=== PATIENT | female | born 1965 | race African-American/Black ===

== ENCOUNTER 2017-01-24 20:45 | Emergency (ER) | payer MEDICARE, OTHER ==
[~2017-01-24] VITALS: Ht 160 cm; Wt 58.5 kg
[2017-01-24 21:18] LABS: BASO # 0.1 x10^3/uL (0.0-0.2); BASO % 1 % (0-3); EOS % 2 % (0-3); HEMOGLOBIN 13.3 g/dL (12.0-15.5); LYMPH # 3.2 x10^3/uL (1.0-4.8); LYMPH % 33 % (24-48); MEAN CORPUSCULAR HEMOGLOBIN 31 pg (25-35); MEAN CORPUSCULAR HGB CONC 33 g/dL (31-37); MEAN CORPUSCULAR VOLUME 94 fL (79-100); MONO % 11 % (0-9); NEUT % 53 % (31-73); PLATELET COUNT 301 x10^3/uL (140-400); RED BLOOD COUNT 4.27 x10^6/uL (3.50-5.40); WHITE BLOOD COUNT 9.5 x10^3/uL (4.0-11.0)
[2017-01-24] MEDS ORDERED: IV NORMAL SALINE 1000ML BAG 1,000 ML IV SCH (21:19)
[2017-01-24 21:22] LABS: BILIRUBIN,URINE NEGATIVE (NEG); GLUCOSE,URINE 100 mg/dL (NEG); NITRITE,URINE NEGATIVE (NEG); PROTEIN,URINE NEGATIVE (NEG-TRACE); UROBILINOGEN,URINE 0.2 mg/dL (0.2 mg/dL)
--- NOTE | 2017-01-24 21:26 | ED.ADGEN ---
Past Medical History Past Medical History: Anxiety, Depression, Diabetes-Type II, High Cholesterol, Hypertension, Schizophrenia Additional Past Medical Histor: hypercholesterol Past Surgical History: Hysterectomy, Tubal ligation Additional Past Surgical Histo: ear Alcohol Use: None Drug Use: None Adult General Chief Complaint Chief Complaint: GI PROBLEM HPI HPI Patient is a 51 year old woman, history of type 2 diabetes mellitus, hypertension, hyperlipidemia, anxiety, who presents to the emergency department with a complaint of left upper quadrant pain. Patient states that she has noted a "knot", on her left side with intermittent pain, which isn't present for about the last year or so. She had an ultrasound performed at last week, she states she was called with results of the ultrasound of the left upper quadrant , but does not recall what they told her. She states that she was seated at [employer] around 4 PM which began experiencing increasing pain she describes as a throbbing ache and a stabbing sensation in the left side, she states she's also been experiencing increasing abdominal distention over the last several days. Nausea today as well, which is new for the patient. No vomiting, no diarrhea, no blood in stool or urine, states that it is common for her to go several days without bowel loops, and her last almost 2 days ago. No fevers or chills, no weakness emesis or tingling, no injuries, no bleeding or bruising. No changes in medication, she does not take any blood thinners. No recent travel or surgery , history of DVT or PE, no shortness of breath or chest pain. Review of Systems Review of Systems Constitutional: Denies fever or chills. [] Eyes: Denies change in visual acuity. [] HENT: Denies nasal congestion or sore throat. [] Respiratory: Denies cough or shortness of breath. [] Cardiovascular: Denies chest pain or edema. [] GI: Left upper quadrant abdominal pain, abdominal distention, nausea, no vomiting, bloody stools or diarrhea. : Denies dysuria. [] Musculoskeletal: Denies back pain or joint pain. [] Integument: Denies rash. [] Neurologic: Denies headache, focal weakness or sensory changes. [] Endocrine: Denies polyuria or polydipsia. [] Lymphatic: Denies swollen glands. [] Psychiatric: Denies depression or anxiety. [] Current Medications Current Medications Current Medications Medications (Trade) Dose Ordered Sig/Betsy Start Time Stop Time Status Last Admin Dose Admin Fentanyl Citrate 25 mcg 25 mcg PRN Q15MIN PRN 01/24/17 21:30 01/24/17 23:36 DC 01/24/17 21:29 25 MCG Info (Do NOT chart on this entry -- for MONITORING) 1 each PRN DAILY PRN 01/24/17 22:00 01/24/17 23:36 DC Iohexol (Omnipaque 300 Mg/ml) 75 ml 1X ONCE 01/24/17 21:45 01/24/17 21:47 DC 01/24/17 21:54 75 ML Ondansetron HCl (Zofran) 4 mg 1X ONCE 01/24/17 21:30 01/24/17 21:31 DC 01/24/17 21:28 4 MG Sodium Chloride (Iv Sodium Chloride 0.9% 1000ml Bag) 1,000 ml @ 100 mls/hr Q10H 01/24/17 21:19 01/24/17 23:36 DC 01/24/17 21:26 100 MLS/HR Allergies Allergies Allergies Coded Allergies Type Severity Reaction Last Updated Verified No Known Drug Allergies 03/05/14 No Physical Exam Physical Exam Constitutional: Well developed, well nourished, no acute distress, non-toxic appearance. [] HENT: Normocephalic, atraumatic, bilateral external ears normal, oropharynx moist, no oral exudates, nose normal. [] Eyes: PERRLA, EOMI, conjunctiva normal, no discharge. [] Neck: Normal range of motion, no tenderness, supple, no stridor. [] Cardiovascular:Heart rate regular rhythm, no murmur, S1, S2, no rubs or gallops. [] Lungs & Thorax: Bilateral breath sounds clear to auscultation, no wheezing, rhonchi, rales. No chest wall crepitus or tenderness. [] Abdomen: Bowel sounds diminished but present, soft, patient's abdomen appears mildly distended, patient with a small palpable mass located in the left upper quadrant, no splenic edge palpated, no external signs of injury, patient with tenderness to palpation in this region, no rigidity, no rebound, no guarding, no masses, no pulsatile masses. [] Skin: Warm, dry, no erythema, no rash. [] Back: No tenderness, no CVA tenderness. [] Extremities: No tenderness, no cyanosis, no clubbing, ROM intact, no edema. Negative Homans sign. [] Neurologic: Alert and oriented X 3, normal motor function, normal sensory function, no focal deficits noted. [] Psychologic: Affect normal, judgement normal, mood normal. [] Current Patient Data Vital Signs Vital Signs Date Time Temp Pulse Resp B/P Pulse Ox O2 Delivery O2 Flow Rate FiO2 01/24/17 23:05 72 16 129/71 99 Room Air 01/24/17 21:01 98.6 98.6 Lab Values Laboratory Tests Test 01/24/17 20:58 White Blood Count 9.5x10^3/uL (4.0-11.0) Red Blood Count 4.27x10^6/uL (3.50-5.40) Hemoglobin 13.3g/dL (12.0-15.5) Hematocrit 40.0% (36.0-47.0) Mean Corpuscular Volume 94fL (79-100) Mean Corpuscular Hemoglobin 31pg (25-35) Mean Corpuscular Hemoglobin Concent 33g/dL (31-37) Red Cell Distribution Width 13.0% (11.5-14.5) Platelet Count 301x10^3/uL (140-400) Neutrophils (%) (Auto) 53% (31-73) Lymphocytes (%) (Auto) 33% (24-48) Monocytes (%) (Auto) 11% (0-9) H Eosinophils (%) (Auto) 2% (0-3) Basophils (%) (Auto) 1% (0-3) Neutrophils # (Auto) 5.0x10^3uL (1.8-7.7) Lymphocytes # (Auto) 3.2x10^3/uL (1.0-4.8) Monocytes # (Auto) 1.0x10^3/uL (0.0-1.1) Eosinophils # (Auto) 0.2x10^3/uL (0.0-0.7) Basophils # (Auto) 0.1x10^3/uL (0.0-0.2) Prothrombin Time 12.8SEC (11.7-14.0) Prothrombin Time INR 1.0 (0.8-1.1) PTT 32SEC (24-38) Urine Collection Type Unknown Urine Color Yellow Urine Clarity Clear Urine pH 7.0 Urine Specific Calder <=1.005 Urine Protein Negativemg/dL (NEG-TRACE) Urine Glucose (UA) 100mg/dL (NEG) Urine Ketones (Stick) Negativemg/dL (NEG) Urine Blood Negative (NEG) Urine Nitrite Negative (NEG) Urine Bilirubin Negative (NEG) Urine Urobilinogen Dipstick 0.2mg/dL (0.2 mg/dL) Urine Leukocyte Esterase Negative (NEG) Urine RBC Occ/HPF (0-2) Urine WBC Rare/HPF (0-4) Urine Bacteria 0/HPF (0-FEW) Sodium Level 144mmol/L (136-145) Potassium Level 4.6mmol/L (3.5-5.1) Chloride Level 104mmol/L (98-107) Carbon Dioxide Level 31mmol/L (21-32) Anion Gap 9 (6-14) Blood Urea Nitrogen 11mg/dL (7-20) Creatinine 0.6mg/dL (0.6-1.0) Estimated GFR (Cockcroft-Gault) 126.5 BUN/Creatinine Ratio 18 (6-20) Glucose Level 211mg/dL (70-99) H Calcium Level 9.4mg/dL (8.5-10.1) Total Bilirubin 0.3mg/dL (0.2-1.0) Aspartate Amino Transferase (AST) 16U/L (15-37) Alanine Aminotransferase (ALT) 17U/L (14-59) Alkaline Phosphatase 61U/L (46-116) Total Protein 7.1g/dL (6.4-8.2) Albumin 3.6g/dL (3.4-5.0) Albumin/Globulin Ratio 1.0 (1.0-1.7) Lipase 131U/L (73-393) Laboratory Tests 01/24/17 20:58 Laboratory Tests 01/24/17 20:58 EKG EKG EC: Sinus rhythm, heart rate 81 beats minute, upright axis, QTC of 409, OK 162, QRS of 82, mild baseline artifact, no ST elevations or depressions, no evidence of acute ST abnormalities. As interpreted by me. [] Radiology/Procedures Radiology/Procedures [] [facility] [address] [place] [address] IMAGING REPORT Signed PATIENT: DANIELLA BURROWS ACCOUNT: [id number] : 1965 LOCATION: ER AGE: 51 SEX: F EXAM STATUS: REG ER ORD. PHYSICIAN: ÓSCAR ROY DO REASON: LUQ abd pain/mass/abd distention PROCEDURE: ABD PELV W/ IV CONTRAST ONLY INDICATION: 51-year-old female with severe left-sided abdominal pain today. Left upper quadrant abdominal pain, mass, distension. COMPARISON: None TECHNIQUE: Axial CT images obtained through the abdomen and pelvis following the intravenous administration of 75 cc of Omni 300. Coronal and sagittal reformats are provided. One or more of the following individualized dose reduction techniques were utilized for this examination: 1. Automated exposure control; 2. Adjustment of the mA and/or kV according to patient size; 3. Use of iterative reconstruction technique. FINDINGS: Visualized lung bases appear clear. The liver, spleen, gallbladder, pancreas, adrenal glands and bilateral kidneys demonstrate no focal abnormality. The GI tract demonstrates no dilated bowel loops to suggest obstruction. There is formed fecal material present throughout the length of the colon suggesting constipation. The appendix is normal in caliber and air-filled in the right lower quadrant. The urinary bladder is mostly decompressed and not well evaluated. No intra-abdominal or pelvic free fluid, free air or significant lymphadenopathy is seen. The aorta is normal in caliber, with diffuse atherosclerotic calcification. Visualized osseous structures and overlying soft tissues demonstrate no acute or suspicious finding. IMPRESSION: No acute intra-abdominal or pelvic process. Findings of constipation. Electronically signed by: Nikunj Pierce (Jan 24, 2017 22:15:24) DICTATED and SIGNED BY: NIKUNJ PIERCE MD DATE: 01/24/17 [id number] CC: ÓSCAR ROY DO; MARIA ALEJANDRA CHRISTIE MD ~ Course & Med Decision Making Course & Med Decision Making Pertinent Labs and Imaging studies reviewed. (See chart for details) Patient with small palpable mass noted in the left upper quadrant, firmness, with no evidence of external signs of trauma, history reports an enlarging mass and abdominal pain worsening over the past year, with significant changes over the past several days. Concern for possible splenic pathology, discussed with patient, patient is agreeable to receiving CT of the abdomen and pelvis to further elucidate her symptoms. Also receiving IV fluids, pain medication, and antiemetics. CT abdomen and pelvis reveals no concerning findings, aside from significant constipation, no evidence of impaction or stool bolus, and I believe this is likely the concerning factor to the patient's symptoms and examination. Patient with a mild hyperglycemia, otherwise laboratory studies are unremarkable. I did discuss the signs and patient, she is resting comfortably at this time, without any pain currently, no nausea, and no vomiting has developed. I did discuss the findings with the patient, we discussed dietary changes, use of Colace, and Bentyl as needed, patient to follow-up with Dr. Rose of GI, and with her primary care provider. We discussed concerning symptoms that should prompt return to the ED, with which patient voiced understanding and agreement, states she is ready to go home at this time. Patient discharged home in stable condition with family plan as above. Dragon Disclaimer Dragon Disclaimer This electronic medical record was generated, in whole or in part, using a voice recognition dictation system. Departure Impression: Primary Impression: Abdominal pain Additional Impression: Constipation Disposition: 01 HOME, SELF-CARE Condition: IMPROVED Scripts Docusate Sodium (Colace)100 Mg Capsule1 Cap PO BID PRN CONSTIPATION #60 CAP Prov:ÓSCAR ROY DO 01/24/17 Dicyclomine Hcl (Bentyl)10 Mg Ceyrnsd80 Mg PO QID PRN cramping #14 TAB Prov:ÓSCAR ROY DO 01/24/17 Problem Qualifiers ÓSCAR ROY DO Jan 24, 2017 21:26
[2017-01-24 21:29] LABS: PROTHROMBIN TIME PATIENT 12.8 SEC (11.7-14.0)
[2017-01-24 21:30] LABS: BACTERIA,URINE 0 /HPF (0-FEW); RBC,URINE OCC /HPF (0-2); WBC,URINE RARE /HPF (0-4)
[2017-01-24] MEDS ORDERED: FENTANYL PF 100 MCG/2 ML VIAL. IV PRN (21:30)
[2017-01-24] MEDS ORDERED: ONDANSETRON PF 4 MG/2 ML VIAL. IV ONE (21:30)
[2017-01-24 21:34] LABS: CALCIUM 9.4 mg/dL (8.5-10.1); CREATININE 0.6 mg/dL (0.6-1.0); GFR 126.5
[2017-01-24 21:35] LABS: POTASSIUM 4.6 mmol/L (3.5-5.1)
[2017-01-24 21:38] LABS: ALBUMIN 3.6 g/dL (3.4-5.0); TOTAL BILIRUBIN 0.3 mg/dL (0.2-1.0); TOTAL PROTEIN 7.1 g/dL (6.4-8.2)
[2017-01-24] MEDS ORDERED: IOHEXOL 300 MG/ML 75 ML VIAL IV ONE (21:45)
[2017-01-24] MEDS ORDERED: CONTRAST GIVEN MC PRN (22:00)
--- NOTE | 2017-01-24 22:16 | RAD ---
INDICATION: 51-year-old female with severe left-sided abdominal pain today. Left upper quadrant abdominal pain, mass, distension. COMPARISON: None TECHNIQUE: Axial CT images obtained through the abdomen and pelvis following the intravenous administration of 75 cc of Omni 300. Coronal and sagittal reformats are provided. One or more of the following individualized dose reduction techniques were utilized for this examination: 1. Automated exposure control; 2. Adjustment of the mA and/or kV according to patient size; 3. Use of iterative reconstruction technique. FINDINGS: Visualized lung bases appear clear. The liver, spleen, gallbladder, pancreas, adrenal glands and bilateral kidneys demonstrate no focal abnormality. The GI tract demonstrates no dilated bowel loops to suggest obstruction. There is formed fecal material present throughout the length of the colon suggesting constipation. The appendix is normal in caliber and air-filled in the right lower quadrant. The urinary bladder is mostly decompressed and not well evaluated. No intra-abdominal or pelvic free fluid, free air or significant lymphadenopathy is seen. The aorta is normal in caliber, with diffuse atherosclerotic calcification. Visualized osseous structures and overlying soft tissues demonstrate no acute or suspicious finding. IMPRESSION: No acute intra-abdominal or pelvic process. Findings of constipation. Electronically signed by: Charisma Pierce (Jan 24, 2017 22:15:24)
[2017-01-24 23:05] VITALS: BP 129/71
[2017-01-24] MEDS ORDERED: DOCU-27 PO (23:07)
[2017-01-24] MEDS ORDERED: DICY10CA53 PO (23:07)
--- NOTE | 2017-01-25 06:32 | EKG ---
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
== END 2017-01-24 23:35 | disposition home or self-care (01) ==
LOC: ER 20:45
DX: K59.00 Constipation, unspecified (principal); E11.65 Type 2 diabetes mellitus with hyperglycemia; I10 Essential (primary) hypertension; E78.5 Hyperlipidemia, unspecified; F41.9 Anxiety disorder, unspecified; F32.9 Major depressive disorder, single episode, unspecified; E78.00 Pure hypercholesterolemia, unspecified; F20.9 Schizophrenia, unspecified; Z90.710 Acquired absence of both cervix and uterus
CPT/HCPCS: 36415; 74177; 80053; 81001; 81025; 83690; 85027; 85610; 85730; 93005; 96361; 96374; 96375; 99285; J2405; J3010; J7030; Q9967

== ENCOUNTER 2017-02-04 11:20 | Emergency (ER) | payer MEDICARE ==
[~2017-02-04] VITALS: Ht 165.1 cm; Wt 58.5 kg
[~2017-02-04 11:20] MED LIST: DICY10CA53 PO; DOCU-27 PO
[2017-02-04 12:00] VITALS: BP 106/65
[2017-02-04] MEDS ORDERED: CEPH-264 PO (12:16)
--- NOTE | 2017-02-04 12:17 | PHYS DOC ---
Past Medical History Past Medical History: Anxiety, Depression, Diabetes-Type II, High Cholesterol, Hypertension, Schizophrenia Additional Past Medical Histor: hypercholesterol Past Surgical History: Hysterectomy, Tubal ligation, Other Additional Past Surgical Histo: Ear Additional Information: 1 pack per day. Alcohol Use: Rarely Drug Use: None Adult General Chief Complaint Chief Complaint: HYPERTENSION HPI HPI 51-year-old female presenting to the emergency department today with reported hypertension. She took her blood pressure home approximately a few hours ago and her blood pressure was in the 130s systolic. She denies any vision changes chest pain shortness of breath. She has had mild hand pain with swelling and redness over the past 24 hours. She also describes as painful. Her pain is sharp nonradiating mild intermittent and without alleviating or exacerbating factors. Review of systems is negative for chest pain shortness of breath nausea vomiting. All other review of systems is negative unless otherwise noted in history of present illness. Review of Systems Review of Systems SEE ABOVE. Allergies Allergies Allergies Coded Allergies Type Severity Reaction Last Updated Verified No Known Drug Allergies 03/05/14 No Physical Exam Physical Exam Constitutional: Well developed, well nourished, no acute distress, non-toxic appearance. HENT: Normocephalic, atraumatic, bilateral external ears normal, oropharynx moist, no oral exudates, nose normal. [] Eyes: PERRLA, EOMI, conjunctiva normal, no discharge. Neck: Normal range of motion, no tenderness, supple, no stridor. [] Cardiovascular:Heart rate regular rhythm, no murmur Lungs & Thorax: Bilateral breath sounds clear to auscultation [] Abdomen: Bowel sounds normal, soft, no tenderness, no masses, no pulsatile masses. Skin: Warm, dry, no erythema, no rash. [] Back: No tenderness, no CVA tenderness. Extremities: The patient's right upper extremity is mildly warm to touch with mild erythema. Mild swelling as well. 2 second cap refill. Normal motor and sensory function of the hand. Palpable pulse present. Neurologic: Alert and oriented X 3, normal motor function, normal sensory function, no focal deficits noted. Psychologic: Affect normal, judgement normal, mood normal. [] Current Patient Data Vital Signs Vital Signs Date Time Temp Pulse Resp B/P Pulse Ox O2 Delivery O2 Flow Rate FiO2 02/04/17 11:40 98 99 18 135/80 97 Room Air 98.0 EKG EKG [] Radiology/Procedures Radiology/Procedures [] Course & Med Decision Making Course & Med Decision Making Pertinent Labs and Imaging studies reviewed. (See chart for details) [] 51-year-old female presenting the emergency department with hypertension. Vital signs showed mild hypertension otherwise unremarkable. Pertinent physical exam was unremarkable other than mild erythematous swelling and warmth to the left hand suggestive of a possible early cellulitis. I recommended the patient follow up with her primary care physician for chronic hypertension management. The patient did not present with suggestion of end organ damage. She is provided oral antibiotics to follow-up with her PCP over the next 2-3 days. Dragon Disclaimer Dragon Disclaimer This electronic medical record was generated, in whole or in part, using a voice recognition dictation system. Departure Departure Impression: Primary Impression: Cellulitis Additional Impression: HTN (hypertension) Disposition: HOME, SELF-CARE Condition: STABLE Referrals: MARIA ALEJANDRA CHRISTIE MD (PCP) Patient Instructions: Hypertension Additional Instructions: Thank you for allowing us to participate in your care today. Followup with your primary care physician in 3 days if your symptoms do not improve. If you do not have a primary care provider you can ask for a list of our primary care providers. Return to the emergency department you have any new or concerning findings. This should be evaluated by the primary care physician and any necessary consulting services for continued management within a few days after discharge. Return to emergency room if you have any new or concerning symptoms including but not limited to fever, chills, nausea, vomiting, intractable pain, any new rashes, chest pain, shortness of air, uncontrolled bleeding, difficulty breathing, and/or vision loss. Scripts Cephalexin (Keflex)500 Mg Capsule1 Cap PO BID #14 CAP Prov:KARINA PARDO MD 02/04/17 Problem Qualifiers KARINA PARDO MD Feb 04, 2017 12:17
--- NOTE | 2017-02-04 14:12 | EKG ---
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
[2017-02-04] MEDS ORDERED: BENTROPINE (19:17)
[2017-02-04] MEDS ORDERED: HALO1TAB PO (19:17)
[2017-02-04] MEDS ORDERED: TRAZ50TA15 PO (19:17)
[2017-02-04] MEDS ORDERED: METF500T4 PO (19:17)
[2017-02-04] MEDS ORDERED: LISI2.5T PO (19:17)
== END 2017-02-04 12:30 | disposition home or self-care (01) ==
LOC: ER 11:20
DX: I10 Essential (primary) hypertension (principal); L03.114 Cellulitis of left upper limb; E11.9 Type 2 diabetes mellitus without complications; E78.00 Pure hypercholesterolemia, unspecified; F20.9 Schizophrenia, unspecified; F32.9 Major depressive disorder, single episode, unspecified; F17.200 Nicotine dependence, unspecified, uncomplicated; F41.9 Anxiety disorder, unspecified; Z90.710 Acquired absence of both cervix and uterus; Z98.51 Tubal ligation status
CPT/HCPCS: 93005; 99284-25

== ENCOUNTER → 2017-04-23 | Outpatient (CLI) | payer BC, MEDICARE ==
[~2017-04-23] MED LIST changes: +BENTROPINE; +CEPH-264 PO; +HALO1TAB PO; +LISI2.5T PO; +METF500T4 PO; +TRAZ50TA15 PO
--- NOTE | 2017-04-25 08:51 | RAD ---
DATE: 04/23/2017 EXAM: DIGITAL SCREEN BILAT W/CAD HISTORY: Routine screening COMPARISON: 02/15/2016 This study was interpreted with the benefit of Computerized Aided Detection (CAD). The breast parenchyma is heterogeneously dense, which could reduce sensitivity of mammography. Breast parenchyma level C. FINDINGS: The fibroglandular pattern in the breasts is heterogeneous. No new or enlarging breast densities are seen. There are scattered microcalcifications in the breasts. On the cc view of the left breast there is a cluster of microcalcifications projected posteriorly near the midline. The grouping is somewhat elongated in configuration. It was not evident on the previous cc view, however, they could be due to differences in patient positioning. This grouping of microcalcifications is not clearly seen on the oblique view but probably lies inferiorly. IMPRESSION: Left breast clustered microcalcifications as described above. Diagnostic mammograms to include magnification and straight medial lateral views are suggested for better localization and characterization. BI-RADS CATEGORY: 0 INCOMPLETE: NEEDS ADDITIONAL IMAGING EVALUATION AND/OR PRIOR MAMMOGRAMS FOR COMPARISON. RECOMMENDED FOLLOW-UP: ADD ADDITIONAL IMAGING PQRS compliance statement: Patient information was entered into a reminder system with a target due date for the next mammogram. Mammography is a sensitive method for finding small breast cancers, but it does not detect them all and is not a substitute for careful clinical examination. A negative mammogram does not negate a clinically suspicious finding and should not result in delay in biopsying a clinically suspicious abnormality. "Our facility is accredited by the [employer] Mammography Program."
== END | disposition home or self-care (01) ==
LOC: MAMMO 15:40
PROVIDERS: ATTEND Family Medicine
DX: Z12.31 Encounter for screening mammogram for malignant neoplasm of breast (principal)
CPT/HCPCS: G0202; 77067

== ENCOUNTER → 2017-05-01 | Outpatient (CLI) | payer BC ==
[~2017-05-01] MED LIST changes: +DOCU-109 PO; -DOCU-27 PO
--- NOTE | 2017-05-01 13:38 | RAD ---
DATE: 05/01/2017 EXAM: DIGITAL DIAGNOSTIC LT HISTORY: Calcifications seen in the left breast on recent screening mammogram. COMPARISON: 04/23/2017 and 02/15/2016 This study was interpreted with the benefit of Computerized Aided Detection (CAD). FINDINGS: Spot compression magnification CC and MLO along with true lateral digital mammograms of the left breast were obtained. Comparison study is dated 04/23/2017 and 02/15/2016. A group of calcifications is seen within the posterior medial aspect of the left breast best seen on the spot compression magnification CC mammograms. They have a probably benign appearance. A repeat diagnostic mammogram of the left breast in 6 months is recommended to document their stability. IMPRESSION: Probably benign appearing calcifications are seen within the left breast as outlined above. A repeat diagnostic mammogram of the left breast in 6 months is recommended to document their stability. BI-RADS CATEGORY: 3 PROBABLY BENIGN FINDING(S)-SHORT INTERVAL FOLLOW-UP SUGGESTED RECOMMENDED FOLLOW-UP: 6M 6 MONTH FOLLOW-UP PQRS compliance statement: Patient information was entered into a reminder system with a target due date 10/31/2017 for the next mammogram. Mammography is a sensitive method for finding small breast cancers, but it does not detect them all and is not a substitute for careful clinical examination. A negative mammogram does not negate a clinically suspicious finding and should not result in delay in biopsying a clinically suspicious abnormality. "Our facility is accredited by the [employer] Mammography Program."
== END | disposition home or self-care (01) ==
LOC: MAMMO 12:55
PROVIDERS: ATTEND Family Medicine
DX: R92.8 Other abnormal and inconclusive findings on diagnostic imaging of breast (principal)
CPT/HCPCS: G0206; 77065

== ENCOUNTER 2017-08-07 21:19 | Emergency (ER) | payer BC ==
[~2017-08-07] VITALS: Ht 160 cm; Wt 58.5 kg
[2017-08-07 22:03] LABS: BILIRUBIN,URINE NEGATIVE (NEG); GLUCOSE,URINE NEGATIVE (NEG); NITRITE,URINE NEGATIVE (NEG); PH,URINE 6.5; PROTEIN,URINE NEGATIVE (NEG-TRACE)
[2017-08-07 22:08] LABS: BACTERIA,URINE 0 /HPF (0-FEW); RBC,URINE OCC /HPF (0-2); SQUAMOUS EPITHELIAL CELL,UR FEW /LPF; WBC,URINE OCC /HPF (0-4)
[2017-08-07 22:14] LABS: BASO # 0.1 x10^3/uL (0.0-0.2); BASO % 1 % (0-3); EOS % 3 % (0-3); HEMATOCRIT 37.7 % (36.0-47.0); HEMOGLOBIN 12.5 g/dL (12.0-15.5); LYMPH % 30 % (24-48); MEAN CORPUSCULAR HEMOGLOBIN 31 pg (25-35); MEAN CORPUSCULAR HGB CONC 33 g/dL (31-37); MEAN CORPUSCULAR VOLUME 93 fL (79-100); MONO % 9 % (0-9); NEUT % 59 % (31-73); PLATELET COUNT 314 x10^3/uL (140-400); RED BLOOD COUNT 4.05 x10^6/uL (3.50-5.40); RED CELL DISTRIBUTION WIDTH 13.2 % (11.5-14.5); WHITE BLOOD COUNT 10.1 x10^3/uL (4.0-11.0)
[2017-08-07 22:23] LABS: CALCIUM 9.5 mg/dL (8.5-10.1); CREATININE 0.6 mg/dL (0.6-1.0); GFR 126.1; POTASSIUM 3.8 mmol/L (3.5-5.1)
[2017-08-07 22:29] LABS: ALBUMIN 3.8 g/dL (3.4-5.0); ALBUMIN/GLOBULIN RATIO 1.2 (1.0-1.7); TOTAL BILIRUBIN 0.1 mg/dL (0.2-1.0); TOTAL PROTEIN 7.1 g/dL (6.4-8.2)
--- NOTE | 2017-08-07 22:37 | PHYS DOC ---
Past Medical History Past Medical History: Anxiety, Depression, Diabetes-Type II, High Cholesterol, Hypertension, Schizophrenia Additional Past Medical Histor: hypercholesterol Past Surgical History: Hysterectomy, Tubal ligation, Other Additional Past Surgical Histo: Ear Alcohol Use: Rarely Drug Use: None Adult General Chief Complaint Chief Complaint: DIARRHEA HPI HPI 52-year-old female presenting to the emergency department with chronic diarrhea , bowel and bladder incontinence for greater than 3 months. She reports having a difficult time getting to the bathroom in time. She states that she has a small amount of urine and feces upon trying to get to the bathroom in time. She denies low back pain. No paresthesias fevers chills focal numbness weakness or tingling. She denies neck stiffness confusion. Location bowel and bladder. Duration intermittent. No alleviating or exacerbating factors present. She denies recent trauma. Review of systems is negative for chest pain abdominal pain nausea vomiting fevers chills. All other review of systems is negative unless otherwise noted in history of present illness. ED course: 52-year-old female presenting with chronic bowel and bladder incontinence. Vital signs afebrile with a normal heart rate. Saturating well with normal blood pressure. Pertinent physical exam findings show soft nontender abdomen. Lungs are clear to auscultation bilaterally. Patient has 5 out of 5 strength in her lower extremities with normal sensation and 2+ deep tendon reflexes in knees. Patient's clinical presentation is not consistent with Guillain-Acharya or cauda equina syndrome. I feel the patient is stable to be discharged home. Patient is able walk without difficulty. I recommended the patient follow-up with her doctor in the next 2-3 days. The patient was then discharged home in stable condition to follow up with their primary care physician over the next 2-3 days. They were to return if their symptoms worsened or if they were concerned for any reason. [id number] discharge instructions and return precautions were given. Patient's questions were answered to their satisfaction. Patient is comfortable plan. Review of Systems Review of Systems SEE ABOVE. Allergies Allergies Allergies Coded Allergies Type Severity Reaction Last Updated Verified No Known Drug Allergies 03/05/14 No Physical Exam Physical Exam SEE ABOVE Constitutional: Well developed, well nourished, no acute distress, non-toxic appearance. [] HENT: Normocephalic, atraumatic, bilateral external ears normal, oropharynx moist, no oral exudates, nose normal. [] Eyes: PERRLA, EOMI, conjunctiva normal, no discharge. [] Neck: Normal range of motion, no tenderness, supple, no stridor. [] Cardiovascular:Heart rate regular rhythm, no murmur [] Lungs & Thorax: Bilateral breath sounds clear to auscultation [] Abdomen: Bowel sounds normal, soft, no tenderness, no masses, no pulsatile masses. [] Skin: Warm, dry, no erythema, no rash. [] Back: No tenderness, no CVA tenderness. [] Back exam shows nontender back midline. No ecchymosis laceration fluctuance erythema or step-offs. Extremities: No tenderness, no cyanosis, no clubbing, ROM intact, no edema. [] Neurologic: Mental status: Awake oriented and alert x3 Cranial nerves: Extraocular movements intact, eyebrows peggy bilaterally smile symmetric, uvula elevation, shoulder shrug intact, tongue protrusion normal DTRs: 2+ Sensation: equal and normal in all extremities Strength: 5/5 in upper and lower extremities bilaterally Psychologic: Affect normal, judgement normal, mood normal. [] Current Patient Data Vital Signs Vital Signs Date Time Temp Pulse Resp B/P (MAP) Pulse Ox O2 Delivery O2 Flow Rate FiO2 08/07/17 21:50 98.0 89 18 128/79 (95) 98 Room Air 98.0 Lab Values Laboratory Tests Test 08/07/17 21:45 08/07/17 22:05 Urine Collection Type Unknown Urine Color Yellow Urine Clarity Cloudy Urine pH 6.5 Urine Specific [place] 1.010 Urine Protein Negative mg/dL (NEG-TRACE) Urine Glucose (UA) Negative mg/dL (NEG) Urine Ketones (Stick) Negative mg/dL (NEG) Urine Blood Negative (NEG) Urine Nitrite Negative (NEG) Urine Bilirubin Negative (NEG) Urine Urobilinogen Dipstick 1.0 mg/dL (0.2 mg/dL) Urine Leukocyte Esterase Small (NEG) Urine RBC Occ /HPF (0-2) Urine WBC Occ /HPF (0-4) Urine Squamous Epithelial Cells Few /LPF Urine Bacteria 0 /HPF (0-FEW) White Blood Count 10.1 x10^3/uL (4.0-11.0) Red Blood Count 4.05 x10^6/uL (3.50-5.40) Hemoglobin 12.5 g/dL (12.0-15.5) Hematocrit 37.7 % (36.0-47.0) Mean Corpuscular Volume 93 fL (79-100) Mean Corpuscular Hemoglobin 31 pg (25-35) Mean Corpuscular Hemoglobin Concent 33 g/dL (31-37) Red Cell Distribution Width 13.2 % (11.5-14.5) Platelet Count 314 x10^3/uL (140-400) Neutrophils (%) (Auto) 59 % (31-73) Lymphocytes (%) (Auto) 30 % (24-48) Monocytes (%) (Auto) 9 % (0-9) Eosinophils (%) (Auto) 3 % (0-3) Basophils (%) (Auto) 1 % (0-3) Neutrophils # (Auto) 5.9 x10^3uL (1.8-7.7) Lymphocytes # (Auto) 3.0 x10^3/uL (1.0-4.8) Monocytes # (Auto) 0.9 x10^3/uL (0.0-1.1) Eosinophils # (Auto) 0.3 x10^3/uL (0.0-0.7) Basophils # (Auto) 0.1 x10^3/uL (0.0-0.2) Sodium Level 142 mmol/L (136-145) Potassium Level 3.8 mmol/L (3.5-5.1) Chloride Level 104 mmol/L (98-107) Carbon Dioxide Level 29 mmol/L (21-32) Anion Gap 9 (6-14) Blood Urea Nitrogen 13 mg/dL (7-20) Creatinine 0.6 mg/dL (0.6-1.0) Estimated GFR (Cockcroft-Gault) 126.1 BUN/Creatinine Ratio 22 (6-20) H Glucose Level 115 mg/dL (70-99) H Calcium Level 9.5 mg/dL (8.5-10.1) Total Bilirubin 0.1 mg/dL (0.2-1.0) L Aspartate Amino Transferase (AST) 8 U/L (15-37) L Alanine Aminotransferase (ALT) 16 U/L (14-59) Alkaline Phosphatase 69 U/L (46-116) Total Protein 7.1 g/dL (6.4-8.2) Albumin 3.8 g/dL (3.4-5.0) Albumin/Globulin Ratio 1.2 (1.0-1.7) Lipase 137 U/L (73-393) Laboratory Tests 08/07/17 22:05 Laboratory Tests 08/07/17 22:05 EKG EKG [] Radiology/Procedures Radiology/Procedures [] Course & Med Decision Making Course & Med Decision Making Pertinent Labs and Imaging studies reviewed. (See chart for details) [] Dragon Disclaimer Dragon Disclaimer This electronic medical record was generated, in whole or in part, using a voice recognition dictation system. Departure Departure Impression: Primary Impression: Chronic diarrhea Disposition: HOME, SELF-CARE Condition: STABLE Referrals: MARIA ALEJANDRA CHRISTIE MD (PCP) Patient Instructions: Chronic Diarrhea Additional Instructions: Thank you for allowing us to participate in your care today. you can take Imodium over the counter as needed for diarrhea. Followup with your primary care physician in 3 days if your symptoms do not improve. Call your Primary Doctor tomorrow and inform them of your visit today. If you do not have a primary care provider you can ask for a list of our primary care providers. Return to the emergency department you have any new or concerning findings. This should be evaluated by the primary care physician and any necessary consulting services for continued management within a few days after discharge. Return to emergency room if you have any new or concerning symptoms including but not limited to fever, chills, nausea, vomiting, intractable pain, any new rashes, chest pain, shortness of air, uncontrolled bleeding, difficulty breathing, and/or vision loss. KARINA PARDO MD Aug 07, 2017 22:37
[2017-08-07 22:58] VITALS: BP 133/74
== END 2017-08-07 23:02 | disposition home or self-care (01) ==
LOC: ER 21:19
DX: K52.9 Noninfective gastroenteritis and colitis, unspecified (principal); E11.9 Type 2 diabetes mellitus without complications; E78.00 Pure hypercholesterolemia, unspecified; F20.9 Schizophrenia, unspecified; I10 Essential (primary) hypertension; Z98.51 Tubal ligation status
CPT/HCPCS: 36415; 80053; 81001; 83690; 85025; 87086; 99284

== ENCOUNTER 2017-11-13 00:09 | Emergency (ER) | payer BC ==
[2017-11-13] MEDS: traMADol 50 MG TABLET PO (00:41)
== END 2017-11-13 00:50 | disposition home or self-care (01) ==
LOC: ER 00:09
DX: S99.921A Unspecified injury of right foot, initial encounter (principal); E78.00 Pure hypercholesterolemia, unspecified; E11.9 Type 2 diabetes mellitus without complications; I10 Essential (primary) hypertension; F20.9 Schizophrenia, unspecified; Z90.710 Acquired absence of both cervix and uterus; Z98.51 Tubal ligation status; W20.8XXA Other cause of strike by thrown, projected or falling object, initial encounter; Y93.89 Activity, other specified; Y99.8 Other external cause status; Y92.89 Other specified places as the place of occurrence of the external cause
CPT/HCPCS: 73660; 99284

== ENCOUNTER 2018-09-26 13:30 | Emergency (ER) | payer BC ==
[~2018-09-26] VITALS: Ht 162.6 cm; Wt 59.0 kg
[~2018-09-26 13:30] MED LIST changes: +METF500T16 PO; -METF500T4 PO; +TRAM50TA PO; +TRAZ-85 PO; -TRAZ50TA15 PO
--- NOTE | 2018-09-26 14:07 | PHYS DOC ---
Past Medical History Past Medical History: Anxiety, Depression, Diabetes-Type II, High Cholesterol, Hypertension, Schizophrenia Additional Past Medical Histor: hypercholesterol Past Surgical History: Hysterectomy, Tubal ligation, Other Additional Past Surgical Histo: Ear Alcohol Use: Rarely Drug Use: None Adult General Chief Complaint Chief Complaint: DIZZY/LIGHT HEADED HPI HPI Patient is a 53 year old took husbands medications by accident : lisinopril ezetmibe, carvedilol metformin, statin, isosorbide. this only happened once last week but since that time has had some dizziness feels off balance at times also having sharp pain noted to the left chest and radiating down to the mid abdomen and pelvic area. no sob no fever pt does take lisinopril metformin haldol cogentin , trazodone normally, statin medicine but does not normally take th other ones. also started a new med for depression but does not know the name. this was started a week and a half ago. Review of Systems Review of Systems Constitutional: Denies fever or chills [] Eyes: Denies change in visual acuity, redness, or eye pain [] HENT: Denies nasal congestion or sore throat [] Respiratory: Denies cough or shortness of breath [] Cardiovascular: No additional information not addressed in HPI [] GI: Denies abdominal pain, nausea, vomiting, bloody stools or diarrhea [] : Denies dysuria or hematuria [] Musculoskeletal: Denies back pain or joint pain [] Integument: Denies rash or skin lesions [] Neurologic: Denies headache, focal weakness or sensory changes [] Endocrine: Denies polyuria or polydipsia [] All other systems were reviewed and found to be within normal limits, except as documented in this note. Current Medications Current Medications Current Medications Medications (Trade) Dose Ordered Sig/Betsy Start Time Stop Time Status Last Admin Dose Admin Acetaminophen (Tylenol) 650 mg 1X ONCE 09/26/18 14:15 09/26/18 14:16 DC 09/26/18 14:29 650 MG Meclizine HCl (Antivert) 25 mg 1X ONCE 09/26/18 14:15 09/26/18 14:16 DC 09/26/18 14:29 25 MG Allergies Allergies Allergies Coded Allergies Type Severity Reaction Last Updated Verified No Known Drug Allergies 03/05/14 No Physical Exam Physical Exam Constitutional: Well developed, well nourished, no acute distress, non-toxic appearance. [] HENT: Normocephalic, atraumatic, bilateral external ears normal, oropharynx moist, no oral exudates, nose normal. [] Eyes: PERRLA, EOMI, conjunctiva normal, no discharge. [] Neck: Normal range of motion, no tenderness, supple, no stridor. [] Cardiovascular:Heart rate regular rhythm, no murmur [] Lungs & Thorax: Bilateral breath sounds clear to auscultation [] there is reproducible ttp left chest. Abdomen: Bowel sounds normal, soft, no tenderness, no masses, no pulsatile masses. [] Skin: Warm, dry, no erythema, no rash. [] Back: No tenderness, no CVA tenderness. [] Extremities: No tenderness, no cyanosis, no clubbing, ROM intact, no edema. [] Neurologic: Alert and oriented X 3, normal motor function, normal sensory function, no focal deficits noted. [] fnf intact, cn's intact Psychologic: Affect normal, judgement normal, mood normal. [] Current Patient Data Vital Signs Vital Signs Date Time Temp Pulse Resp B/P (MAP) Pulse Ox O2 Delivery O2 Flow Rate FiO2 09/26/18 15:00 93 16 99 09/26/18 13:45 97.9 137/80 (99) Room Air 97.9 Lab Values Laboratory Tests Test 09/26/18 14:30 09/26/18 14:35 White Blood Count 10.0 x10^3/uL (4.0-11.0) Red Blood Count 4.46 x10^6/uL (3.50-5.40) Hemoglobin 14.2 g/dL (12.0-15.5) Hematocrit 41.3 % (36.0-47.0) Mean Corpuscular Volume 93 fL (79-100) Mean Corpuscular Hemoglobin 32 pg (25-35) Mean Corpuscular Hemoglobin Concent 34 g/dL (31-37) Red Cell Distribution Width 13.5 % (11.5-14.5) Platelet Count 304 x10^3/uL (140-400) Neutrophils (%) (Auto) 65 % (31-73) Lymphocytes (%) (Auto) 22 % (24-48) L Monocytes (%) (Auto) 10 % (0-9) H Eosinophils (%) (Auto) 2 % (0-3) Basophils (%) (Auto) 1 % (0-3) Neutrophils # (Auto) 6.5 x10^3uL (1.8-7.7) Lymphocytes # (Auto) 2.2 x10^3/uL (1.0-4.8) Monocytes # (Auto) 1.0 x10^3/uL (0.0-1.1) Eosinophils # (Auto) 0.2 x10^3/uL (0.0-0.7) Basophils # (Auto) 0.0 x10^3/uL (0.0-0.2) Sodium Level 143 mmol/L (136-145) Potassium Level 4.4 mmol/L (3.5-5.1) Chloride Level 103 mmol/L (98-107) Carbon Dioxide Level 25 mmol/L (21-32) Anion Gap 15 (6-14) H Blood Urea Nitrogen 12 mg/dL (7-20) Creatinine 0.9 mg/dL (0.6-1.0) Estimated GFR (Cockcroft-Gault) 78.7 BUN/Creatinine Ratio 13 (6-20) Glucose Level 243 mg/dL (70-99) H Calcium Level 10.1 mg/dL (8.5-10.1) Total Bilirubin 0.1 mg/dL (0.2-1.0) L Aspartate Amino Transferase (AST) 7 U/L (15-37) L Alanine Aminotransferase (ALT) 12 U/L (14-59) L Alkaline Phosphatase 61 U/L (46-116) Troponin I Quantitative < 0.017 ng/mL (0.000-0.055) Total Protein 6.5 g/dL (6.4-8.2) Albumin 3.4 g/dL (3.4-5.0) Albumin/Globulin Ratio 1.1 (1.0-1.7) Lipase 75 U/L (73-393) Urine Collection Type Unknown Urine Color Yellow Urine Clarity Clear Urine pH 6.0 Urine Specific [place] 1.020 Urine Protein Negative mg/dL (NEG-TRACE) Urine Glucose (UA) 500 mg/dL (NEG) Urine Ketones (Stick) 15 mg/dL (NEG) Urine Blood Negative (NEG) Urine Nitrite Negative (NEG) Urine Bilirubin Negative (NEG) Urine Urobilinogen Dipstick 1.0 mg/dL (0.2 mg/dL) Urine Leukocyte Esterase Negative (NEG) Urine RBC Rare /HPF (0-2) Urine WBC Rare /HPF (0-4) Urine Squamous Epithelial Cells Few /LPF Urine Bacteria Few /HPF (0-FEW) Urine Mucus Slight /LPF Laboratory Tests 09/26/18 14:30 Laboratory Tests 09/26/18 14:30 EKG EKG sinsu trach rate 103 no ischemic changes normal intervals[] Radiology/Procedures Radiology/Procedures [] Course & Med Decision Making Course & Med Decision Making Pertinent Labs and Imaging studies reviewed. (See chart for details) []Patient's labs are essentially unremarkable vitals are reassuring patient's neurologic exam is normal. She feels better after the above treatment in the emergency room this may be a mild side effect to inadvertent medication use however no signs of any acute cardiac pathology neurologically intact patient was reassured prescription for meclizine return precautions discussed Dragrita Disclaimer Dragrita Disclaimer This electronic medical record was generated, in whole or in part, using a voice recognition dictation system. Departure Departure Impression: Primary Impression: Dizziness Disposition: HOME, SELF-CARE Condition: STABLE Referrals: MARIA ALEJANDRA CHRISTIE MD (PCP) Scripts Meclizine Hcl (MECLIZINE HCL) 25 Mg Tablet 25 MG PO PRN TID PRN for DIZZINESS, #30 dizziness Prov: ROSA AGUILAR MD 09/26/18 ROSA AGUILAR MD Sep 26, 2018 14:07
[2018-09-26] MEDS ORDERED: MECLIZINE HCL 12.5 MG TABLET. PO ONE (14:15)
[2018-09-26] MEDS ORDERED: ACETAMINOPHEN 325 MG TABLET. PO ONE (14:15)
[2018-09-26 14:43] LABS: BASO % 1 % (0-3); EOS # 0.2 x10^3/uL (0.0-0.7); EOS % 2 % (0-3); HEMATOCRIT 41.3 % (36.0-47.0); HEMOGLOBIN 14.2 g/dL (12.0-15.5); LYMPH # 2.2 x10^3/uL (1.0-4.8); LYMPH % 22 % (24-48); MEAN CORPUSCULAR HEMOGLOBIN 32 pg (25-35); MEAN CORPUSCULAR HGB CONC 34 g/dL (31-37); MEAN CORPUSCULAR VOLUME 93 fL (79-100); MONO % 10 % (0-9); NEUT # 6.5 x10^3uL (1.8-7.7); NEUT % 65 % (31-73); PLATELET COUNT 304 x10^3/uL (140-400); RED BLOOD COUNT 4.46 x10^6/uL (3.50-5.40); RED CELL DISTRIBUTION WIDTH 13.5 % (11.5-14.5)
[2018-09-26 14:45] LABS: BILIRUBIN,URINE NEGATIVE (NEG); CLARITY,URINE CLEAR; COLOR,URINE YELLOW; NITRITE,URINE NEGATIVE (NEG); PROTEIN,URINE NEGATIVE (NEG-TRACE)
[2018-09-26 14:51] LABS: RBC,URINE RARE /HPF (0-2); WBC,URINE RARE /HPF (0-4)
[2018-09-26 14:52] LABS: BACTERIA,URINE FEW /HPF (0-FEW); SQUAMOUS EPITHELIAL CELL,UR FEW /LPF
--- NOTE | 2018-09-26 14:52 | EKG ---
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
[2018-09-26 14:57] LABS: CALCIUM 10.1 mg/dL (8.5-10.1); CREATININE 0.9 mg/dL (0.6-1.0); GFR 78.7; POTASSIUM 4.4 mmol/L (3.5-5.1)
[2018-09-26 15:00] VITALS: BP 119/63
[2018-09-26 15:02] LABS: ALBUMIN 3.4 g/dL (3.4-5.0); ALBUMIN/GLOBULIN RATIO 1.1 (1.0-1.7); TOTAL BILIRUBIN 0.1 mg/dL (0.2-1.0); TOTAL PROTEIN 6.5 g/dL (6.4-8.2)
[2018-09-26] MEDS ORDERED: MECL25TA3 PO (15:19)
== END 2018-09-26 15:30 | disposition home or self-care (01) ==
LOC: ER 13:30
DX: R42 Dizziness and giddiness (principal); R07.89 Other chest pain; R10.2 Pelvic and perineal pain; R10.9 Unspecified abdominal pain; E78.00 Pure hypercholesterolemia, unspecified; I10 Essential (primary) hypertension; E11.9 Type 2 diabetes mellitus without complications; F20.9 Schizophrenia, unspecified; Z90.710 Acquired absence of both cervix and uterus; Z98.51 Tubal ligation status
CPT/HCPCS: 36415; 80053; 81001; 83690; 84484; 85025; 93005; 99285; J8597

== ENCOUNTER 2018-11-13 10:52 | Emergency (ER) | payer BC ==
[~2018-11-13] VITALS: Ht 160 cm; Wt 59.0 kg
[~2018-11-13 10:52] MED LIST changes: +MECL25TA3 PO
[2018-11-13 11:11] VITALS: BP 138/77
--- NOTE | 2018-11-13 12:10 | PHYS DOC ---
Past Medical History Past Medical History: Anxiety, Depression, Diabetes-Type II, High Cholesterol, Hypertension, Schizophrenia Additional Past Medical Histor: hypercholesterol Past Surgical History: Hysterectomy, Tubal ligation, Other Additional Past Surgical Histo: Ear, L breast biopsy Alcohol Use: Rarely Drug Use: None Adult General Chief Complaint Chief Complaint: OTHER COMPLAINTS HPI HPI 53-year-old female presents to ER with complaints of left facial swelling and left upper dental pain. Patient states she broke her left upper tooth 3 weeks ago and last night developed facial swelling and increased dental pain. Patient denies taking any [id number]-[id number] medications. Patient denies eye pain, vision changes, dizziness, or nausea and vomiting. Patient reports she is type II diabetic but has not checked her blood sugar. Pt denies any polydipsia or polyuria. She reports she is a daily smoker and has had previous dental issues. Review of Systems Review of Systems Constitutional: Denies fever or chills [] Eyes: Denies change in visual acuity, redness, or eye pain [] HENT: Denies nasal congestion or sore throat/swelling. Reports lt upper dental pain w/gum swelling and lt facial swelling Respiratory: Denies shortness of breath [] Cardiovascular: Nice chest pain or palpitations GI: Denies nausea, vomiting Musculoskeletal: Denies back pain or joint pain [] Integument: Denies rash or skin lesions [] Neurologic: Denies headache, focal weakness or sensory changes. Denies dizziness Endocrine: Denies polyuria or polydipsia [] All other systems were reviewed and found to be within normal limits, except as documented in this note. Current Medications Current Medications Current Medications Medications (Trade) Dose Ordered Sig/Betsy Start Time Stop Time Status Last Admin Dose Admin Acetaminophen/ Hydrocodone Bitart (Lortab 5/325) 1 tab 1X ONCE 11/13/18 12:15 11/13/18 12:16 DC 11/13/18 12:24 1 TAB Ibuprofen (Motrin) 600 mg 1X ONCE 11/13/18 12:15 11/13/18 12:16 DC 11/13/18 12:23 600 MG Allergies Allergies Allergies Coded Allergies Type Severity Reaction Last Updated Verified No Known Drug Allergies 03/05/14 No Physical Exam Physical Exam Constitutional: Well developed, well nourished, no acute distress, non-toxic appearance. [] HENT: Normocephalic, atraumatic, bilateral external ears normal, oropharynx moist, no oral exudates, nose normal. [] Eyes: PERRLA, EOMI, conjunctiva normal, no discharge. [] Neck: Normal range of motion, no tenderness, supple, no stridor. [] Cardiovascular:Heart rate regular rhythm, no murmur [] Lungs & Thorax: Bilateral breath sounds clear to auscultation [] Abdomen: Bowel sounds normal, soft, no tenderness, no masses, no pulsatile masses. [] Skin: Warm, dry, no erythema, no rash. [] Back: No tenderness, no CVA tenderness. [] Extremities: No tenderness, no cyanosis, no clubbing, ROM intact, no edema. [] Neurologic: Alert and oriented X 3, normal motor function, normal sensory function, no focal deficits noted. [] Psychologic: Affect normal, judgement normal, mood normal. [] Current Patient Data Vital Signs Vital Signs Date Time Temp Pulse Resp B/P (MAP) Pulse Ox O2 Delivery O2 Flow Rate FiO2 11/13/18 11:11 98.2 107 18 138/77 (97) 97 Room Air 98.2 Lab Values Laboratory Tests Test 11/13/18 12:19 Glucose (Fingerstick) 250 mg/dL (70-99) H EKG EKG [] Radiology/Procedures Radiology/Procedures [] Course & Med Decision Making Course & Med Decision Making Pertinent Labs and Imaging studies reviewed. (See chart for details) Accu check was 250. Patient was evaluated in the ER for complaints of left upper dental pain with facial swelling. Patient had swelling in her left cheek into her left upper side of mouth. On exam patient was found to have left upper gum erythema surrounding multiple broken dental teeth with caries. No visible abscess. Patient had no eye involvement denying any pain with eye movement or vision changes. Patient was afebrile. Smoking cessation was discussed and patient was encouraged to call as soon as possible to scheduled dental appointment for further care and reevaluation. Patient reports she has tenderness she can follow -up with. She was given dose of ibuprofen and Cassandra while in the ER. Patient will be provided with prescription for Cassandra and clindamycin. She advised on closely monitoring blood sugars. Education provided on signs and symptoms to return to ER for an discharge instructions were discussed. Patient was nontoxic in appearance and having no difficulty swallowing or speaking. Dragon Disclaimer Dragon Disclaimer This electronic medical record was generated, in whole or in part, using a voice recognition dictation system. Departure Departure Impression: Primary Impression: Dental infection Disposition: 01 HOME, SELF-CARE Condition: STABLE Referrals: MARIA ALEJANDRA CHRISTIE MD (PCP) Patient Instructions: Dental Caries Additional Instructions: It is important to monitor her blood sugar closely during your dental infection. Drink plenty of water. Avoid smoking. Call as soon as possible to scheduled dental appointment for further care and reevaluation. You can take ibuprofen as directed on container for pain relief and you are being provided with Cassandra prescription. No driving or drinking alcohol while taking that medication. Scripts Clindamycin Hcl (CLINDAMYCIN HCL) 150 Mg Capsule 450 MG PO TID for 10 Days, #90 CAP 0 Refills Prov: CARMEN MAYO APRN 11/13/18 Hydrocodone/Apap 5-325 (NORCO 5-325 TABLET) 1 Each Tablet 1 TAB PO PRN Q6HRS PRN for PAIN, #8 TAB 0 Refills Prov: CARMEN MAYO APRN 11/13/18 CARMEN MAYO APRN Nov 13, 2018 12:10
[2018-11-13] MEDS ORDERED: HYDROcodone/APAP 5/325MG 1 TAB TABLET PO ONE (12:15)
[2018-11-13] MEDS ORDERED: IBUPROFEN 600 MG TABLET. PO ONE (12:15)
[2018-11-13] MEDS ORDERED: PENI500T PO (12:37)
[2018-11-13] MEDS ORDERED: HYDR-3164 PO (12:37)
[2018-11-13] MEDS ORDERED: CLIN150C14 PO (12:41)
== END 2018-11-13 12:47 | disposition home or self-care (01) ==
LOC: ER 10:52
DX: K04.7 Periapical abscess without sinus (principal); E11.9 Type 2 diabetes mellitus without complications; E78.00 Pure hypercholesterolemia, unspecified; I10 Essential (primary) hypertension
CPT/HCPCS: 82962; 99283

== ENCOUNTER 2019-02-07 04:29 | Emergency (ER) | payer BC, OTHER ==
[~2019-02-07] VITALS: Ht 160 cm; Wt 59.0 kg
[~2019-02-07 04:29] MED LIST changes: +CLIN150C14 PO; +HYDR-3164 PO; +PENI500T PO; +TRAZ-118 PO; -TRAZ-85 PO
[2019-02-07 04:47] VITALS: BP 153/72
[2019-02-07 04:48] LABS: BILIRUBIN,URINE NEGATIVE (NEG); CLARITY,URINE CLEAR; COLOR,URINE YELLOW; NITRITE,URINE NEGATIVE (NEG); PH,URINE 5.5; PROTEIN,URINE NEGATIVE (NEG-TRACE); UROBILINOGEN,URINE 0.2 mg/dL (0.2 mg/dL)
[2019-02-07 05:19] LABS: RBC,URINE 0 /HPF (0-2); SQUAMOUS EPITHELIAL CELL,UR FEW /LPF; WBC,URINE 0 /HPF (0-4)
[2019-02-07 05:20] LABS: BACTERIA,URINE FEW /HPF (0-FEW)
--- NOTE | 2019-02-07 05:57 | PHYS DOC ---
Past Medical History Past Medical History: Anxiety, Depression, Diabetes-Type II, High Cholesterol, Hypertension, Schizophrenia Additional Past Medical Histor: hypercholesterol Past Surgical History: Hysterectomy, Tubal ligation, Other Additional Past Surgical Histo: Ear, L breast biopsy Alcohol Use: Rarely Drug Use: None Adult General Chief Complaint Chief Complaint: URINARY FREQUENCY HPI HPI Patient is a 53 year old female with urinary frequency long-standing basis she was having trouble sleeping so she came to the emergency room no pain no fever no other symptoms Allergies Allergies Allergies Coded Allergies Type Severity Reaction Last Updated Verified No Known Drug Allergies 03/05/14 No Physical Exam Physical Exam Constitutional: Well developed, well nourished, no acute distress, non-toxic appearance. [] HENT: Normocephalic, atraumatic, bilateral external ears normal, oropharynx moist, no oral exudates, nose normal. [] Eyes: PERRLA, EOMI, conjunctiva normal, no discharge. [] Neck: Normal range of motion, no tenderness, supple, no stridor. [] Pulmonary: Normal respiratory effort no increased work of breathing no obvious chest wall trauma Abdomen: Bowel sounds normal, soft, small subcutaneous nodule in the left lateral abdomen mild distention possibly but no tenderness Skin: Warm, dry, no erythema, no rash. [] Back: No tenderness, no CVA tenderness. [] Extremities: No tenderness, no cyanosis, no clubbing, ROM intact, no edema. [] Neurologic: Alert and oriented X 3, normal motor function, normal sensory function, no focal deficits noted. [] Psychologic: Affect normal, judgement normal, mood normal. [] Current Patient Data Vital Signs Vital Signs Date Time Temp Pulse Resp B/P (MAP) Pulse Ox O2 Delivery O2 Flow Rate FiO2 02/07/19 04:47 97.6 87 16 153/72 (99) 97 Room Air 97.6 Lab Values Laboratory Tests Test 02/07/19 04:32 02/07/19 04:44 Urine Collection Type Unknown Urine Color Yellow Urine Clarity Clear Urine pH 5.5 Urine Specific [place] 1.015 Urine Protein Negative mg/dL (NEG-TRACE) Urine Glucose (UA) >=1000 mg/dL (NEG) Urine Ketones (Stick) Negative mg/dL (NEG) Urine Blood Negative (NEG) Urine Nitrite Negative (NEG) Urine Bilirubin Negative (NEG) Urine Urobilinogen Dipstick 0.2 mg/dL (0.2 mg/dL) Urine Leukocyte Esterase Negative (NEG) Urine RBC 0 /HPF (0-2) Urine WBC 0 /HPF (0-4) Urine Squamous Epithelial Cells Few /LPF Urine Bacteria Few /HPF (0-FEW) Glucose (Fingerstick) 294 mg/dL (70-99) H EKG EKG [] Radiology/Procedures Radiology/Procedures [] Course & Med Decision Making Course & Med Decision Making Pertinent Labs and Imaging studies reviewed. (See chart for details) []Urinary frequency and diabetic with a blood sugar 294 that is the likely etiology urinalysis is negative for infection. I recommended follow-up with her primary care doctor regarding the saphenous nodule in the left abdomen this is also of unclear etiology at this time but not related to her chief complaint. Dragon Disclaimer Dragon Disclaimer This electronic medical record was generated, in whole or in part, using a voice recognition dictation system. Departure Departure Impression: Primary Impression: Urinary frequency Disposition: HOME, SELF-CARE Condition: STABLE Patient Instructions: Urinary Frequency Additional Instructions: see primary doctoretta ford the nodule on left mid abdominal wall ROSA AGUILAR MD Feb 07, 2019 05:57
== END 2019-02-07 05:30 | disposition home or self-care (01) ==
LOC: ER 04:29
DX: R35.0 Frequency of micturition (principal); R22.2 Localized swelling, mass and lump, trunk; F32.9 Major depressive disorder, single episode, unspecified; F41.9 Anxiety disorder, unspecified; E11.9 Type 2 diabetes mellitus without complications; E78.00 Pure hypercholesterolemia, unspecified; I10 Essential (primary) hypertension; Z90.710 Acquired absence of both cervix and uterus; Z98.51 Tubal ligation status
CPT/HCPCS: 81001; 82962; 99283

== ENCOUNTER 2019-03-11 19:22 | Emergency (ER) | payer MEDICARE, OTHER ==
[~2019-03-11] VITALS: Ht 160 cm; Wt 58.1 kg
[2019-03-11] MEDS ORDERED: IV NORMAL SALINE 1000ML BAG 1,000 ML IV ONE (20:15)
[2019-03-11] MEDS ORDERED: MECLIZINE HCL 12.5 MG TABLET. PO ONE (20:15)
--- NOTE | 2019-03-11 20:20 | PHYS DOC ---
Past Medical History Past Medical History: Anxiety, Depression, Diabetes-Type II, High Cholesterol, Hypertension, Schizophrenia Additional Past Medical Histor: hypercholesterol Past Surgical History: Hysterectomy, Tubal ligation, Other Additional Past Surgical Histo: Ear, L breast biopsy Alcohol Use: Rarely Drug Use: None Adult General Chief Complaint Chief Complaint: DIZZY/LIGHT HEADED HPI HPI Patient is a 53 year old female who presents with dizziness. Patient states the dizziness started on Saturday and has been intermittent since then. She describes it as the room is spinning. She is unable to identify aggravating or alleviating factors. She also is have some blurry vision. Patient denies any headaches, focal neurological deficits, chest pain, or shortness of breath. Review of Systems Review of Systems Constitutional: Denies fever or chills Eyes: Reports blurry vision. Denies redness or eye pain. HENT: Denies nasal congestion or sore throat Respiratory: Denies cough or shortness of breath Cardiovascular: Denies chest pain or palpitations. GI: Denies abdominal pain, nausea, vomiting : Denies dysuria or hematuria Musculoskeletal: Denies back pain or joint pain Integument: Denies rash or skin lesions Neurologic: Reports dizziness. Denies headache, focal weakness or sensory changes Complete systems were reviewed and found to be within normal limits, except as documented in this note. Current Medications Current Medications Current Medications Medications (Trade) Dose Ordered Sig/Betsy Start Time Stop Time Status Last Admin Dose Admin Diazepam (Valium) 5 mg 1X ONCE 03/11/19 23:15 03/11/19 23:15 DC 03/11/19 22:57 5 MG Meclizine HCl (Antivert) 25 mg 1X ONCE 03/11/19 20:15 03/11/19 20:19 DC 03/11/19 20:42 25 MG Sodium Chloride 1,000 ml @ 1,000 mls/hr 1X ONCE 03/11/19 20:15 03/11/19 21:14 DC 03/11/19 20:43 1,000 MLS/HR Allergies Allergies Allergies Coded Allergies Type Severity Reaction Last Updated Verified No Known Drug Allergies 03/05/14 No Physical Exam Physical Exam Constitutional: Well developed, well nourished HENT: Normocephalic, atraumatic, bilateral external ears normal, mucus membranes tachy Eyes: EOMI, conjunctiva normal Neck: Normal range of motion, supple Cardiovascular:Heart rate regular rhythm, no murmur Lungs & Thorax: Breath sounds clear bilaterally, no rhonchi, rales or wheezes Abdomen: Bowel sounds normal, soft, no tenderness Skin: Warm, dry, no erythema, no rash. Back: No tenderness, no CVA tenderness. Extremities: No tenderness, no cyanosis, no clubbing, ROM intact, no edema. Neurologic: Alert and oriented X 3, horizontal nystagmus to the right, normal motor function, normal sensory function, no focal deficits noted. Psychologic: Affect normal, judgement normal, mood normal. Current Patient Data Vital Signs Vital Signs Date Time Temp Pulse Resp B/P (MAP) Pulse Ox O2 Delivery O2 Flow Rate FiO2 03/11/19 22:36 82 18 98 03/11/19 19:30 98.7 177/84 (115) Room Air 98.7 Lab Values Laboratory Tests Test 03/11/19 20:26 03/11/19 21:20 White Blood Count 8.5 x10^3/uL (4.0-11.0) Red Blood Count 4.29 x10^6/uL (3.50-5.40) Hemoglobin 13.1 g/dL (12.0-15.5) Hematocrit 39.5 % (36.0-47.0) Mean Corpuscular Volume 92 fL (79-100) Mean Corpuscular Hemoglobin 31 pg (25-35) Mean Corpuscular Hemoglobin Concent 33 g/dL (31-37) Red Cell Distribution Width 14.1 % (11.5-14.5) Platelet Count 299 x10^3/uL (140-400) Neutrophils (%) (Auto) 53 % (31-73) Lymphocytes (%) (Auto) 31 % (24-48) Monocytes (%) (Auto) 14 % (0-9) H Eosinophils (%) (Auto) 2 % (0-3) Basophils (%) (Auto) 0 % (0-3) Neutrophils # (Auto) 4.5 x10^3uL (1.8-7.7) Lymphocytes # (Auto) 2.6 x10^3/uL (1.0-4.8) Monocytes # (Auto) 1.1 x10^3/uL (0.0-1.1) Eosinophils # (Auto) 0.2 x10^3/uL (0.0-0.7) Basophils # (Auto) 0.0 x10^3/uL (0.0-0.2) Sodium Level 143 mmol/L (136-145) Potassium Level 4.4 mmol/L (3.5-5.1) Chloride Level 104 mmol/L (98-107) Carbon Dioxide Level 31 mmol/L (21-32) Anion Gap 8 (6-14) Blood Urea Nitrogen 12 mg/dL (7-20) Creatinine 0.8 mg/dL (0.6-1.0) Estimated GFR (Cockcroft-Gault) 90.1 BUN/Creatinine Ratio 15 (6-20) Glucose Level 256 mg/dL (70-99) H Calcium Level 10.0 mg/dL (8.5-10.1) Magnesium Level 1.9 mg/dL (1.8-2.4) Total Bilirubin 0.1 mg/dL (0.2-1.0) L Aspartate Amino Transferase (AST) 8 U/L (15-37) L Alanine Aminotransferase (ALT) 15 U/L (14-59) Alkaline Phosphatase 70 U/L (46-116) Creatine Kinase 154 U/L (26-192) Creatine Kinase MB (Mass) 1.6 ng/mL (0.0-3.6) Creatine Kinase MB Relative Index 1.0 % (0-4) Troponin I Quantitative < 0.017 ng/mL (0.000-0.055) Total Protein 7.5 g/dL (6.4-8.2) Albumin 4.0 g/dL (3.4-5.0) Albumin/Globulin Ratio 1.1 (1.0-1.7) Urine Collection Type Unknown Urine Color Yellow Urine Clarity Clear Urine pH 8.0 Urine Specific [place] 1.020 Urine Protein Negative mg/dL (NEG-TRACE) Urine Glucose (UA) >=1000 mg/dL (NEG) Urine Ketones (Stick) Negative mg/dL (NEG) Urine Blood Negative (NEG) Urine Nitrite Negative (NEG) Urine Bilirubin Negative (NEG) Urine Urobilinogen Dipstick 1.0 mg/dL (0.2 mg/dL) Urine Leukocyte Esterase Negative (NEG) Urine RBC Occ /HPF (0-2) Urine WBC Occ /HPF (0-4) Urine Squamous Epithelial Cells Few /LPF Urine Bacteria Few /HPF (0-FEW) Urine Mucus Slight /LPF Laboratory Tests 03/11/19 20:26 Laboratory Tests 03/11/19 20:26 EKG EKG ekg @ 2043, sinus rhythm rate at 86 bpm, no ST elevation or signs of ischemia Radiology/Procedures Radiology/Procedures PROCEDURE: CT HEAD WO CONTRAST CT Head W/O Contrast: History: dizziness since Saturday Comparison: none Axial images were obtained without contrast. The gonsalez and white matter appears normal and symmetrical for the patients age. There is no mass effect, extraaxial fluid collections or hydrocephalus. There is no gross bleed. There is no focal loss of gonsalez-white matter distinction to suggest acute ischemia, i.e. stroke. Impression: No acute findings. RS Compliance Statement: One or more of the following individualized dose reduction techniques were utilized for this examination: 1. Automated exposure control 2. Adjustment of the mA and/or kV according to patient size 3. Use of iterative reconstruction technique Electronically signed by: Evelyn Evangelista III, MD (03/11/2019 10:12 PM) [facility] DICTATED and SIGNED BY: EVELYN EVANGELISTA III, MD Course & Med Decision Making Course & Med Decision Making 53 year old female presents to the emergency department due to dizziness since Saturday. She is also reporting some blurry vision. She reports a similar episode 7 to 8 years ago and was diagnosed with vertigo. Labs and imaging obtained and posted to chart. CT head negative for acute bleed. Symptomatic treatment provided with interval improvement. Prescription for meclizine provided. Patient stable for discharge at this time, encouraged patient to follow up with PCP, ENT, and neurology. Discussed findings with patient and family who acknowledge understanding and are in agreement with plan. Dragon Disclaimer Dragon Disclaimer This electronic medical record was generated, in whole or in part, using a voice recognition dictation system. Departure Departure Impression: Primary Impression: Dizziness Disposition: 01 HOME, SELF-CARE Condition: GOOD Referrals: MARIA ALEJANDRA CHRISTIE MD (PCP) Patient Instructions: Dizziness, [id number], Vertigo, [id number] Scripts Meclizine Hcl (MECLIZINE HCL) 25 Mg Tablet 1 TAB PO PRN TID PRN for DIZZINESS, #20 TAB Prov: GEREMIAS RICHARDS DO 03/11/19 GEREMIAS RICHARDS DO Mar 11, 2019 20:20
[2019-03-11 20:43] LABS: BASO % 0 % (0-3); EOS # 0.2 x10^3/uL (0.0-0.7); EOS % 2 % (0-3); HEMATOCRIT 39.5 % (36.0-47.0); HEMOGLOBIN 13.1 g/dL (12.0-15.5); LYMPH # 2.6 x10^3/uL (1.0-4.8); LYMPH % 31 % (24-48); MEAN CORPUSCULAR HEMOGLOBIN 31 pg (25-35); MEAN CORPUSCULAR HGB CONC 33 g/dL (31-37); MEAN CORPUSCULAR VOLUME 92 fL (79-100); MONO # 1.1 x10^3/uL (0.0-1.1); MONO % 14 % (0-9); NEUT # 4.5 x10^3uL (1.8-7.7); NEUT % 53 % (31-73); PLATELET COUNT 299 x10^3/uL (140-400); RED BLOOD COUNT 4.29 x10^6/uL (3.50-5.40); RED CELL DISTRIBUTION WIDTH 14.1 % (11.5-14.5); WHITE BLOOD COUNT 8.5 x10^3/uL (4.0-11.0)
[2019-03-11 21:04] LABS: CREATININE 0.8 mg/dL (0.6-1.0); GFR 90.1; POTASSIUM 4.4 mmol/L (3.5-5.1)
[2019-03-11 21:06] LABS: ALBUMIN/GLOBULIN RATIO 1.1 (1.0-1.7); MAGNESIUM 1.9 mg/dL (1.8-2.4); TOTAL BILIRUBIN 0.1 mg/dL (0.2-1.0); TOTAL PROTEIN 7.5 g/dL (6.4-8.2)
[2019-03-11 21:30] LABS: BILIRUBIN,URINE NEGATIVE (NEG); CLARITY,URINE CLEAR; COLOR,URINE YELLOW; NITRITE,URINE NEGATIVE (NEG); PROTEIN,URINE NEGATIVE (NEG-TRACE)
[2019-03-11 21:36] LABS: BACTERIA,URINE FEW /HPF (0-FEW); RBC,URINE OCC /HPF (0-2); SQUAMOUS EPITHELIAL CELL,UR FEW /LPF; WBC,URINE OCC /HPF (0-4)
--- NOTE | 2019-03-11 22:14 | RAD ---
CT Head W/O Contrast: History: dizziness since Saturday Comparison: none Axial images were obtained without contrast. The gonsalez and white matter appears normal and symmetrical for the patients age. There is no mass effect, extraaxial fluid collections or hydrocephalus. There is no gross bleed. There is no focal loss of gonsalez-white matter distinction to suggest acute ischemia, i.e. stroke. Impression: No acute findings. RS Compliance Statement: One or more of the following individualized dose reduction techniques were utilized for this examination: 1. Automated exposure control 2. Adjustment of the mA and/or kV according to patient size 3. Use of iterative reconstruction technique Electronically signed by: Giorgio Maldonado III, MD (03/11/2019 10:12 PM) [facility]
[2019-03-11 22:36] VITALS: BP 121/56
[2019-03-11] MEDS ORDERED: MECL25TA3 PO (22:45)
[2019-03-11] MEDS ORDERED: diazePAM 5 MG TABLET PO ONE (23:15)
--- NOTE | 2019-03-12 06:50 | EKG ---
[facility] [address] [place] [address] Test Date: 2019-03-11 Test Time: 20:43:30 Pat Name: DANIELLA BURROWS Department: Room: Gender: F [employer]: : 1965 Requested By: GEREMIAS RICHARDS Order Number: [id number] Reading MD: Max Harrison Measurements Intervals [place] Rate: 86 P: 49 [place]: 148 QRS: 3 QRSD: 80 T: 21 QT: 332 QTc: 400 Interpretive Statements SINUS RHYTHM LEFT ATRIAL ABNORMALITY QRS(T) CONTOUR ABNORMALITY CONSIDER ANTEROLATERAL MYOCARDIAL DAMAGE ABNORMAL ECG RI6.01 Compared to ECG 09/26/2018 14:00:34 Atrial abnormality now present Sinus tachycardia no longer present Electronically Signed On 03-18-2019 11:44:03 CDT by Max Harrison
--- NOTE | 2019-03-18 10:02 | NUR ---
Late entry made to Medical Record. IV Stop time transcribed from eMAR to IV spreadsheet
== END 2019-03-11 23:09 | disposition home or self-care (01) ==
LOC: ER 19:22
DX: R42 Dizziness and giddiness (principal); H53.8 Other visual disturbances; E11.9 Type 2 diabetes mellitus without complications; E78.00 Pure hypercholesterolemia, unspecified; I10 Essential (primary) hypertension; F20.9 Schizophrenia, unspecified; F32.9 Major depressive disorder, single episode, unspecified; F41.9 Anxiety disorder, unspecified
CPT/HCPCS: 36415; 70450; 80053; 81001; 82553; 83735; 84484; 85025; 93005; 96360; 99285; J7030; J8597

== ENCOUNTER 2019-12-21 00:49 | Emergency (ER) | payer MEDICARE ==
[~2019-12-21] VITALS: Ht 160 cm; Wt 55.5 kg
[~2019-12-21 00:49] MED LIST changes: +MECL-75 PO; -MECL25TA3 PO
--- NOTE | 2019-12-21 02:08 | PHYS DOC ---
Past Medical History Past Medical History: Anxiety, Depression, Diabetes-Type II, High Cholesterol, Hypertension, Schizophrenia Additional Past Medical Histor: hypercholesterol Past Surgical History: Hysterectomy, Tubal ligation, Other Additional Past Surgical Histo: Ear, L breast biopsy Alcohol Use: Rarely Drug Use: None Adult General Chief Complaint Chief Complaint: DIZZY/LIGHT HEADED HPI HPI Patient is a 54 year old female with history of schizophrenia, diabetes melli tus, hypertension, dyslipidemia, anxiety who presents with pain of dizziness and nausea and vomiting. Patient states she had 2 episodes of vomiting about 3 hours prior to arrival to ER and then felt dizzy without related to her position. Patient denies nausea, focal neuro deficit, headache, blurred vision, tinnitus, chest pain and shortness of breath, abdominal pain. Patient states she had episodes of vertigo previously but did not have vomiting. Review of Systems Review of Systems Constitutional: Denies fever or chills [] Eyes: Denies change in visual acuity, redness, or eye pain [] HENT: Denies nasal congestion or sore throat [] Respiratory: Denies cough or shortness of breath [] Cardiovascular: No additional information not addressed in HPI [] GI: Denies abdominal pain, bloody stools or diarrhea , reports nausea and vomiting[] : Denies dysuria or hematuria [] Musculoskeletal: Denies back pain or joint pain [] Integument: Denies rash or skin lesions [] Neurologic: Denies headache, focal weakness or sensory changes [] Endocrine: Denies polyuria or polydipsia [] All other systems were reviewed and found to be within normal limits, except as documented in this note. Current Medications Current Medications Current Medications Medications (Trade) Dose Ordered Sig/Betsy Start Time Stop Time Status Last Admin Dose Admin Ondansetron HCl (Zofran) 4 mg 1X ONCE 12/21/19 02:30 12/21/19 02:31 DC 12/21/19 02:12 4 MG Sodium Chloride 1,000 ml @ 1,000 mls/hr Q1H 12/21/19 02:30 12/21/19 03:29 12/21/19 02:12 1,000 MLS/HR Allergies Allergies Allergies Coded Allergies Type Severity Reaction Last Updated Verified No Known Drug Allergies 03/05/14 No Physical Exam Physical Exam Constitutional: Well nourished, no acute distress, non-toxic appearance. [] HENT: Normocephalic, atraumatic, bilateral external ears normal, oropharynx moist, no oral exudates, nose normal. [] Eyes: PERRLA, EOMI, conjunctiva normal, no discharge. [] Neck: Normal range of motion, no tenderness, supple, no stridor. [] Cardiovascular:Heart rate regular rhythm, no murmur [] Lungs & Thorax: Bilateral breath sounds clear to auscultation [] Abdomen: Bowel sounds normal, soft, no tenderness, no masses, no pulsatile masses. [] Skin: Warm, dry, no erythema, no rash. [] Back: No tenderness, no CVA tenderness. [] Extremities: No tenderness, no cyanosis, no clubbing, ROM intact, no edema. [] Neurologic: Alert and oriented X 3, normal motor function, normal sensory function, no focal deficits noted. [] Psychologic: Affect normal, judgement normal, mood normal. [] Current Patient Data Vital Signs Vital Signs Date Time Temp Pulse Resp B/P (MAP) Pulse Ox O2 Delivery O2 Flow Rate FiO2 12/21/19 01:30 97.5 84 16 160/72 (101) 97 Room Air 97.5 Lab Values Laboratory Tests Test 12/21/19 01:35 12/21/19 01:45 Urine Collection Type Unknown Urine Color Yellow Urine Clarity Clear Urine pH 8.5 Urine Specific [place] >=1.030 Urine Protein 30 mg/dL (NEG-TRACE) Urine Glucose (UA) 250 mg/dL (NEG) Urine Ketones (Stick) Negative mg/dL (NEG) Urine Blood Negative (NEG) Urine Nitrite Negative (NEG) Urine Bilirubin Negative (NEG) Urine Urobilinogen Dipstick 1.0 mg/dL (0.2 mg/dL) Urine Leukocyte Esterase Negative (NEG) Urine RBC 0 /HPF (0-2) Urine WBC Occ /HPF (0-4) Urine Squamous Epithelial Cells Few /LPF Urine Amorphous Sediment Present /HPF Urine Bacteria 0 /HPF (0-FEW) Urine Mucus Mod /LPF White Blood Count 13.8 x10^3/uL (4.0-11.0) H Red Blood Count 4.15 x10^6/uL (3.50-5.40) Hemoglobin 12.7 g/dL (12.0-15.5) Hematocrit 38.7 % (36.0-47.0) Mean Corpuscular Volume 93 fL (79-100) Mean Corpuscular Hemoglobin 31 pg (25-35) Mean Corpuscular Hemoglobin Concent 33 g/dL (31-37) Red Cell Distribution Width 13.8 % (11.5-14.5) Platelet Count 346 x10^3/uL (140-400) Neutrophils (%) (Auto) 72 % (31-73) Lymphocytes (%) (Auto) 17 % (24-48) L Monocytes (%) (Auto) 10 % (0-9) H Eosinophils (%) (Auto) 1 % (0-3) Basophils (%) (Auto) 0 % (0-3) Neutrophils # (Auto) 9.9 x10^3/uL (1.8-7.7) H Lymphocytes # (Auto) 2.3 x10^3/uL (1.0-4.8) Monocytes # (Auto) 1.4 x10^3/uL (0.0-1.1) H Eosinophils # (Auto) 0.1 x10^3/uL (0.0-0.7) Basophils # (Auto) 0.0 x10^3/uL (0.0-0.2) Sodium Level 143 mmol/L (136-145) Potassium Level 4.0 mmol/L (3.5-5.1) Chloride Level 102 mmol/L (98-107) Carbon Dioxide Level 31 mmol/L (21-32) Anion Gap 10 (6-14) Blood Urea Nitrogen 16 mg/dL (7-20) Creatinine 0.8 mg/dL (0.6-1.0) Estimated GFR (Cockcroft-Gault) 89.8 BUN/Creatinine Ratio 20 (6-20) Glucose Level 279 mg/dL (70-99) H Calcium Level 9.4 mg/dL (8.5-10.1) Total Bilirubin 0.1 mg/dL (0.2-1.0) L Aspartate Amino Transferase (AST) 9 U/L (15-37) L Alanine Aminotransferase (ALT) 10 U/L (14-59) L Alkaline Phosphatase 72 U/L (46-116) Creatine Kinase 121 U/L (26-192) Total Protein 7.1 g/dL (6.4-8.2) Albumin 3.8 g/dL (3.4-5.0) Albumin/Globulin Ratio 1.2 (1.0-1.7) Lipase 103 U/L (73-393) Laboratory Tests 12/21/19 01:45 Laboratory Tests 12/21/19 01:45 EKG EKG [] Radiology/Procedures Radiology/Procedures Gallbladder ultrasound did not show acute finding. Course & Med Decision Making Course & Med Decision Making Pertinent Labs and Imaging studies reviewed. (See chart for details) I've spoken with the patient and/or caregivers. I've explained the patient's condition, diagnosis and treatment plan based on information available to me at this time. I've answered the patient's and/or caregivers questions and addressed any concerns. The patient and/or caregivers have a good understanding the patient's diagnosis, condition and treatment plan as can be expected at this point. Vital signs have been stabilized. The patient's condition is stable for discharge from the emergency department. The patient will pursue further outpatient evaluation with her primary care provider or other designated consulting physician as outlined in the discharge instructions. Patient and/or caregivers are agreeable to this plan of care and follow-up instructions have been explained in detail. The patient and/or caregivers have received these instructions in written format and expressed understanding of these discharge instructions. The patient and her caregivers are aware that if any significant change in condition or worsening of symptoms should prompt him to immediately return to this of the closest emergency department. If an emergent department is not readily available I would encourage him to call 911. Jeannine Disclaimer Dragon Disclaimer This electronic medical record was generated, in whole or in part, using a voice recognition dictation system. Departure Departure Impression: Primary Impression: Benign positional vertigo Additional Impressions: Nausea and vomiting Uncontrolled diabetes mellitus Disposition: HOME, SELF-CARE (at 0313) Condition: IMPROVED Referrals: NO PCP (PCP) Patient Instructions: 1800 Calorie Diet for Diabetes Meal Planning, Benign Positional Vertigo Additional Instructions: Drink plenty of liquids Follow-up with your primary care physician in 3-5 days Return to ER if not getting better Scripts Meclizine Hcl (MECLIZINE HCL) 25 Mg Tablet 1 TAB PO TID for dizziness, #20 TAB Prov: NIKOLAY HOUSTON MD 12/21/19 Problem Qualifiers Primary Impression: Benign positional vertigo Laterality: unspecified laterality Qualified Codes: H81.10 - Benign paroxysmal vertigo, unspecified ear Additional Impressions: Nausea and vomiting Vomiting type: unspecified Vomiting Intractability: unspecified Qualified Codes: R11.2 - Nausea with vomiting, unspecified Uncontrolled diabetes mellitus Diabetes mellitus type: other specified (including JOHANN) Glycemic state: with hyperglycemia Qualified Codes: E13.65 - Other specified diabetes mellitus with hyperglycemia NIKOLAY HOUSTON MD Dec 21, 2019 02:08
[2019-12-21 02:18] LABS: BASO % 0 % (0-3); EOS # 0.1 x10^3/uL (0.0-0.7); EOS % 1 % (0-3); HEMATOCRIT 38.7 % (36.0-47.0); HEMOGLOBIN 12.7 g/dL (12.0-15.5); LYMPH # 2.3 x10^3/uL (1.0-4.8); LYMPH % 17 % (24-48); MEAN CORPUSCULAR HEMOGLOBIN 31 pg (25-35); MEAN CORPUSCULAR HGB CONC 33 g/dL (31-37); MEAN CORPUSCULAR VOLUME 93 fL (79-100); MONO # 1.4 x10^3/uL (0.0-1.1); MONO % 10 % (0-9); NEUT # 9.9 x10^3/uL (1.8-7.7); NEUT % 72 % (31-73); PLATELET COUNT 346 x10^3/uL (140-400); RED BLOOD COUNT 4.15 x10^6/uL (3.50-5.40); RED CELL DISTRIBUTION WIDTH 13.8 % (11.5-14.5); WHITE BLOOD COUNT 13.8 x10^3/uL (4.0-11.0)
[2019-12-21 02:21] LABS: BILIRUBIN,URINE NEGATIVE (NEG); CLARITY,URINE CLEAR; COLOR,URINE YELLOW; NITRITE,URINE NEGATIVE (NEG); PH,URINE 8.5; PROTEIN,URINE 30 mg/dL (NEG-TRACE)
[2019-12-21 02:25] LABS: CALCIUM 9.4 mg/dL (8.5-10.1); CREATININE 0.8 mg/dL (0.6-1.0); GFR 89.8
[2019-12-21 02:30] LABS: ALBUMIN 3.8 g/dL (3.4-5.0); ALBUMIN/GLOBULIN RATIO 1.2 (1.0-1.7); TOTAL BILIRUBIN 0.1 mg/dL (0.2-1.0); TOTAL PROTEIN 7.1 g/dL (6.4-8.2)
[2019-12-21] MEDS ORDERED: ONDANSETRON PF 4 MG/2 ML VIAL. IV ONE (02:30)
[2019-12-21] MEDS ORDERED: IV NORMAL SALINE 1000ML BAG 1,000 ML IV SCH (02:30)
[2019-12-21 02:32] LABS: BACTERIA,URINE 0 /HPF (0-FEW); RBC,URINE 0 /HPF (0-2); WBC,URINE OCC /HPF (0-4)
[2019-12-21 02:33] LABS: AMORPHOUS SEDIMENT,UR PRESENT /HPF; SQUAMOUS EPITHELIAL CELL,UR FEW /LPF
[2019-12-21] MEDS ORDERED: MECL-75 PO (03:14)
[2019-12-21 03:30] VITALS: BP 118/63
--- NOTE | 2019-12-21 03:48 | RAD ---
Clinical History: Elevated liver enzymes. Technique: Sonographic examination of the right upper quadrant of the abdomen was performed and multiple static images were obtained. Comparison: none Findings: The majority of the liver is visualized and appears homogeneous. The common bile duct appears normal and measures 3 mm in diameter. The gallbladder appears normal. The pancreas is not well visualized due to overlying bowel gas. The right kidney appears normal and measures 12 cm in length. Impression: Negative. No evidence of gallbladder disease. Electronically signed by: Giorgio Maldonado III, MD (12/21/2019 3:45 AM) [id number]
--- NOTE | 2019-12-21 11:19 | EKG ---
[facility] [address] [place] [address] Test Date: 2019-12-21 Test Time: 01:41:46 Pat Name: DANIELLA BURROWS Department: Room: Gender: F [employer]er: : 1965 Requested By: NIKOLAY HOUSTON Order Number: [id number] Reading MD: Measurements Intervals [place] Rate: 82 P: 83 [place]: 166 QRS: 22 QRSD: 84 T: 21 QT: 370 QTc: 435 Interpretive Statements SINUS RHYTHM QRS(T) CONTOUR ABNORMALITY CONSIDER ANTEROSEPTAL MYOCARDIAL DAMAGE POSSIBLY ABNORMAL ECG RI6.01 No previous ECG available for comparison
== END 2019-12-21 03:48 | disposition home or self-care (01) ==
LOC: ER 00:49
DX: H81.10 Benign paroxysmal vertigo, unspecified ear (principal); R11.2 Nausea with vomiting, unspecified; E11.65 Type 2 diabetes mellitus with hyperglycemia; I10 Essential (primary) hypertension; E78.00 Pure hypercholesterolemia, unspecified; F20.9 Schizophrenia, unspecified; F41.9 Anxiety disorder, unspecified; F32.9 Major depressive disorder, single episode, unspecified; Z90.710 Acquired absence of both cervix and uterus; Z98.51 Tubal ligation status
CPT/HCPCS: 36415; 76705; 80053; 81001; 82550; 83690; 85025; 93005; 96361; 96374; 99285; J2405; J7030

== ENCOUNTER 2020-11-04 15:51 | Emergency (ER) | payer MEDICARE ==
[~2020-11-04] VITALS: Ht 160 cm; Wt 59.0 kg
[2020-11-04 18:00] VITALS: BP 120/67
--- NOTE | 2020-11-04 18:56 | PHYS DOC ---
Past Medical History Past Medical History: Anxiety, Depression, Diabetes-Type II, High Cholesterol, Hypertension, Schizophrenia Additional Past Medical Histor: hypercholesterol Past Surgical History: Hysterectomy, Tubal ligation, Other Additional Past Surgical Histo: Ear, L breast biopsy Smoking Status: Current Every Day Smoker Alcohol Use: Rarely Drug Use: None General Adult EDM: Chief Complaint: EARACHE/EAR PAIN HPI: HPI: 55 yo F presents the ED with complaints of bilateral ear pain worse on the right ear than the left for the past 3 days with tender anterior swollen neck, no hearing loss. Some relief with peroxide and [id number] pain medication. History of eustachian tube syndrome as a child. No recent head, neck or ear injury. No ear drainage. Does not believe she has been exposed to Covid. Denies any associated unexplained weight loss, night sweats, lack of taste or smell, fever, sore throat, cough, rhinorrhea, and nasal congestion. No FH lymphoma. Review of Systems: Review of Systems: Constitutional: Denies fever or chills. [] Eyes: Denies change in visual acuity. [] HENT: Denies nasal congestion or sore throat, no tinnitus or hearing loss, no ear drainage Respiratory: Denies cough or shortness of breath. [] Cardiovascular: Denies chest pain or edema. [] GI: Denies abdominal pain, nausea, vomiting, bloody stools or diarrhea. [] : Denies dysuria. [] Musculoskeletal: Denies back pain or joint pain. [] Integument: Denies rash. [] Neurologic: Denies headache, focal weakness or sensory changes. [] Endocrine: Denies polyuria or polydipsia. [] Lymphatic: Denies swollen glands. [] Psychiatric: Denies depression or anxiety. [] Heart Score: Risk Factors: Risk Factors: DM, Current or recent (<one month) smoker, HTN, HLP, family history of CAD, obesity. Risk Scores: Score 0 - 3: 2.5% MACE over next 6 weeks - Discharge Home Score 4 - 6: 20.3% MACE over next 6 weeks - Admit for Clinical Observation Score 7 - 10: 72.7% MACE over next 6 weeks - Early Invasive Strategies Allergies: Allergies: Allergies Coded Allergies Type Severity Reaction Last Updated Verified No Known Drug Allergies 03/05/14 No Physical Exam: PE: Constitutional: Well developed, well nourished, no acute distress, non-toxic appearance. HENT: Normocephalic, atraumatic, Eyes: EOMI, conjunctiva normal, no discharge, bilateral normal pearly TMs with no effusions or erythema, normal external canal, no pain over mastoid bone, no obliteration of auricular crease, right anterior cervical lymphadenopathy, no pharyngeal petechiae, exudates or erythema, cobblestoning in oropharynx Neck: Normal range of motion, supple, Cardiovascular: S1/2 present, regular rhythm Lungs & Thorax: Speaking in full sentences, bilateral equal chest rise, no tachypnea or increased work of breathing Abdomen: soft, no tenderness, Skin: Warm, dry, no erythema, no rash. [] Back: No tenderness, no CVA tenderness. [] Extremities: No tenderness, no cyanosis, no edema Neurologic: Alert and oriented X 3, normal motor function, normal sensory function, no focal deficits noted. [] Psychologic: Affect normal, judgement normal, mood normal. [] Current Patient Data: Vital Signs: Vital Signs Date Time Temp Pulse Resp B/P (MAP) Pulse Ox O2 Delivery O2 Flow Rate FiO2 11/04/20 18:00 98.0 82 16 120/67 (84) 99 Room Air 98.0 EKG: EKG: [] Radiology/Procedures: Radiology/Procedures: [] Course & Med Decision Making: Course & Med Decision Making Pertinent Labs and Imaging studies reviewed. (See chart for details) COVID-19 CRITERIA: The patient was evaluated during the global COVID-19 pandemic, and that diagnosis was suspected/considered upon their initial presentation. Their evaluation, treatment and testing was consistent with current guidelines for patients who present with complaints or symptoms that may be related to COVID-19 Concern for acute right otalgia, suspect viral process, Covid on differential and test offered, patient declined. Recommend conservative management with Tylenol, ibuprofen, rest and fluids. Will discharge home with strict ED return precautions were given for hearing loss, purulent drainage, headache, nuchal rigidity or fever. Encouraged urgent outpatient follow-up with PMD for reevaluation in 5 to 7 days if no improvement, may need antibiotics. Oncology referral if lymphadenopathy does not resolve. Life-threatening processes were considered but are low suspicion at this time, given history, physical exam and ED workup. Pt was educated on all prescription medications and adverse effects. All patient's questions were answered and pt was stable at time of discharge. Life/limb-threatening differential includes but is not limited to, auricular hematoma or perichondritis, malignant otitis externa, otitis externa or media, otomycosis, bullous myringitis, mastoiditis, hearing loss or vestibular disor manav, tympanic membrane rupture, herpes zoster oticus, contact dermatitis, cholesteatoma, meningitis, brain abscess or venous/cavernous/cerebral sinus thrombosis. I spoken with the patient and her caregivers. I explained the patient's condition, diagnoses and treatment plan based on the information available to me at this time. I have answered the patient and her caregiver's questions and addressed any concerns. The patient and her caregivers have a good understanding of patient's diagnosis, condition and treatment plan as can be expected at this point. Vital signs have been stable. Patient's condition is stable and appropriate for discharge from the emergency department. Patient will pursue further outpatient evaluation with primary care physician or other designated or consulting physician as outlined in the discharge instructions. The patient and/or caregivers are agreeable to this plan of care and follow-up instructions have been explained in detail. The patient and/or caregivers have received these instructions in written form and have expressed an understanding of the discharge instructions. The patient and/or caregivers are aware that any significant change of condition or worsening of symptoms should prompt immediate return to this or the closest emergency department or call to 911. Jeannine Disclaimer: Jeannine Disclaimer: This electronic medical record was generated, in whole or in part, using a voice recognition dictation system. Departure Departure Impression: Primary Impression: Otalgia of right ear Additional Impression: Anterior cervical lymphadenopathy Disposition: 01 DC HOME SELF CARE/HOMELESS Condition: STABLE Referrals: UNKNOWN PCP NAME (PCP) FOLLOW UP WITH FAMILY MEDICINE: Family Medicine Address: [address] [place] [address] Patient Instructions: Lymphangitis, Pediatric, Otalgia Additional Instructions: FOLLOW UP WITH: Hematology/Oncology [facility] Address: [address] [place] [address] EMERGENCY DEPARTMENT GENERAL DISCHARGE INSTRUCTIONS Thank you for coming to [facility] Emergency Department (ED) tod ay and trusting us with you care. We trust that you had a positive experience in our Emergency Department. If you wish to speak to the department management, you may call the Director at [phone]. YOUR FOLLOW UP INSTRUCTIONS ARE FOLLOWS: 1. Do you have a private Doctor? If you do not have a private doctor, please ask for a resource list of physicians or clinics that may be able to assist you with follow up care. 2. The Emergency Physicain has interpreted your x-rays. The X-Ray specialist will also review them. If there is a change in the findings, you will be notified in 48 hours when at all possible. 3. A lab test or culture has been done, your results will be reviewed and you will be notified if you need a change in treatment. ADDITIONAL INSTRUCTIONS AND INFORMATION: 1. Your care today has been supervised by a physician who is specially trained in emergency care. Many problems require more than one evaluation for a complete diagnosis and treatment. We recommend that you schedule your follow up appointment as recommended to ensure complete treatment of you illness or injury. If you are unable to obtain follow up care and continue to have a problem, or if your condition worsens, we recommend that you return to the ED. 2. We are not able to safely determine your condition over the phone nor are we able to give sound medical advice over the phone. For these safety reasons, if you call for medical advice we will ask you to come to the ED for further evaluation. 3. If you have any questions regarding these discharge instructions please call the ED at [phone]. SAFETY INFORMATION: In the interest of safety, wellness, and injury prevention; we encourage you to wear your sealbelt, if you smoke; quite smoking, and we encourage family to use a protective helmet for bicycling and other sporting events that present an increased risk for head injury. IF YOUR SYMPTOMS WORSEN OR NEW SYMPTOMS DEVELOP, OR YOU HAVE CONCERNS ABOUT YOUR CONDITION; OR IF YOUR CONDITION WORSENS WHILE YOU ARE WAITING FOR YOUR FOLLOW UP APPOINTMENT; EITHER CONTACT YOUR PRIMARY CARE DOCTOR, THE PHYSICIAN WHOSE NAME AND NUMBER YOU WERE GIVEN, OR RETURN TO THE ED IMMEDIATELY. CARMEN ACEVEDO DO Nov 04, 2020 18:56
== END 2020-11-04 19:02 | disposition home or self-care (01) ==
LOC: ER 15:51
DX: H92.01 Otalgia, right ear (principal); R59.0 Localized enlarged lymph nodes; F41.9 Anxiety disorder, unspecified; F32.9 Major depressive disorder, single episode, unspecified; E11.9 Type 2 diabetes mellitus without complications; E78.00 Pure hypercholesterolemia, unspecified; I10 Essential (primary) hypertension; F20.9 Schizophrenia, unspecified; F17.200 Nicotine dependence, unspecified, uncomplicated; Z98.51 Tubal ligation status; Z90.710 Acquired absence of both cervix and uterus; Z98.890 Other specified postprocedural states
CPT/HCPCS: 99281

== ENCOUNTER 2021-09-12 22:09 | Emergency (ER) | payer MEDICARE ==
[~2021-09-12] VITALS: Ht 162.6 cm; Wt 56.0 kg
[~2021-09-12 22:09] MED LIST changes: -CLIN150C14 PO; +CLIN150C16 PO; -LISI2.5T PO; +LISI2.5T12 PO
[2021-09-12 22:45] VITALS: BP 159/77
[2021-09-12] MEDS ORDERED: AMOX875T PO (23:16)
--- NOTE | 2021-09-12 23:17 | PHYS DOC ---
Past Medical History Past Medical History: Anxiety, Depression, Diabetes-Type II, High Cholesterol, Hypertension, Schizophrenia (BERTRAM BURT) Past Surgical History: Hysterectomy, Tubal ligation, Other Additional Past Surgical Histo: Ear, L breast biopsy (BERTRAM BURT) Smoking Status: Current Every Day Smoker Alcohol Use: Rarely Drug Use: None (BERTRAM BURT) General Adult EDM: Chief Complaint: MULTIPLE COMPLAINTS HPI: HPI: Patient is a 56 year old female who presents with 3-week history of left-sided ear pain. She rates her pain 9/10 and it now radiates down the left side of her neck. She denies any trauma or discharge from the ear. Patient has taken acetaminophen at home in effort to relieve her pain. Her last dose was this morning. Patient has additional complaint of recurrent headaches. She has an appointment to see another provider in her PCPs office on 09/22. Her provider was unable to see her until the end of next month, so she elected to see someone else in order to have her recurrent headaches further evaluated. She denies fever, chills, nasal congestion, sore throat, cough, shortness of breath. (BERTRAM BURT) Review of Systems: Review of Systems: Constitutional: See HPI Eyes: Denies change in visual acuity or visual field deficit. HENT: See HPI Respiratory: See HPI Cardiovascular: Denies chest pain or edema. GI: Denies abd pain, n/v/d Neurologic: See HPI (BERTRAM BURT) Heart Score: C/O Chest Pain: No (BERTRAM BURT) Allergies: Allergies: Allergies Coded Allergies Type Severity Reaction Last Updated Verified oxycodone Allergy Intermediate ITCHING 09/12/21 Yes (BERTRAM BURT) Physical Exam: PE: Constitutional: Well developed, well nourished, well groomed, no acute distress, non-toxic appearance. HENT: Normocephalic, atraumatic, bilateral external ears without erythema or swelling, no tragal tenderness bilaterally, bilateral ear canals without erythema or discharge, right tympanic membrane not visualized secondary to excess cerumen in the ear canal, left tympanic membrane erythematous, oropharynx moist, nose normal. Eyes: PERRLA, EOMI, conjunctiva normal, no discharge. Neck: Normal range of motion, no tenderness, no stridor. Cardiovascular: Heart rate regular rhythm, no murmur. Lungs & Thorax: Bilateral breath sounds clear to auscultation. (BERTRAM BURT) PE: repeat HR on monitor nsr per PA (CARMEN ACEVEDO DO) Current Patient Data: Vital Signs: Vital Signs Date Time Temp Pulse Resp B/P (MAP) Pulse Ox O2 Delivery O2 Flow Rate FiO2 09/12/21 22:45 98.8 109 18 159/77 (104) 96 Room Air 98.8 pulse rate by palp prior to discharge was 96-98 bpm (BERTRAM BURT) Course & Med Decision Making: Course & Med Decision Making Pertinent Labs and Imaging studies reviewed. (See chart for details) Patient appears to have acute otitis media to the left ear. Patient reports that she has an appointment for evaluation of her recurrent headaches already. As this is not her main complaint, I will attempt to treat the headache while treating her chief complaint of ear pain. On reevaluation, patient has symptom improvement with ibuprofen. She may take ibuprofen up to 800 mg every 6-8 hours at home. 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 I advised her to keep her appointment with her PCPs office to further evaluate and treat her headaches. Patient understands and is agreeable to discharge plan. (BERTRAM BURT) Dragon Disclaimer: Dragrita Disclaimer: This electronic medical record was generated, in whole or in part, using a voice recognition dictation system. (BERTRAM BURT) Departure Departure Impression: Primary Impression: Acute otitis media, left Additional Impression: Recurrent headache Disposition: 01 HOME / SELF CARE / HOMELESS Condition: STABLE Referrals: CAROLINA YOUNG (PCP) Patient Instructions: General Headache Without Cause, [id number], Otitis Media, Adult, [id number] Additional Instructions: You were treated today for acute otitis media, which is a middle ear infection. Please take the full course of antibiotics you are prescribed. You may take up to 800 mg of ibuprofen every 6-8 hours as needed for pain. This should alleviate the pain in your ear as well as your headache. Please keep your appointment with the provider and your primary care doctor's office for further evaluation of your recurrent headaches. Please return to the emergency department if your pain worsens or you develop new symptoms. Scripts Amoxicillin (AMOXICILLIN) 875 Mg Tablet 1 TAB PO BID for 7 Days, #14 TAB Prov: BERTRAM BURT 09/12/21 BERTRAM BURT Sep 12, 2021 23:17 CARMEN ACEVEDO DO Sep 13, 2021 01:50
[2021-09-12] MEDS ORDERED: IBUPROFEN 200 MG TABLET. PO ONE (23:30)
== END 2021-09-12 23:53 | disposition home or self-care (01) ==
LOC: ER 22:09
DX: H66.92 Otitis media, unspecified, left ear (principal); R51.9 Headache, unspecified; M54.2 Cervicalgia; E11.9 Type 2 diabetes mellitus without complications; E78.00 Pure hypercholesterolemia, unspecified; I10 Essential (primary) hypertension; F20.9 Schizophrenia, unspecified; F41.9 Anxiety disorder, unspecified; F32.9 Major depressive disorder, single episode, unspecified; F17.200 Nicotine dependence, unspecified, uncomplicated; Z88.5 Allergy status to narcotic agent
CPT/HCPCS: 99282